=== PATIENT | male | born 1975 | race Caucasian/White ===

== ENCOUNTER → 2016-11-19 | Outpatient (CLI) | payer OTHER ==
[2016-11-19 10:45] LABS: CH 31.5; CHCM 35.6; HCT 39.6 % (39.0-53.0); HDW 3.01; HGB 13.8 gm/dL (13.0-17.5); MCH 30.9 pg (25.0-35.0); MCHC 34.8 g/dL (31.0-37.0); MCV 88.9 fL (80.0-100.0); Mean Platelet Volume 7.9; RBC 4.45 m/uL (4.30-5.90); RDW 12.6 % (11.5-15.5); WBC 3.6 k/uL (3.8-10.6)
[2016-11-19 10:57] LABS: Bilirubin, Delta 0.2 mg/dL (0.0-0.2); Total Bilirubin 0.4 mg/dL (0.2-1.3); Total Protein 7.1 g/dL (6.3-8.2)
[2016-11-19 12:22] LABS: Hemoglobin A1C 5.3 % (4.2-6.1)
== END | disposition home or self-care (01) ==
LOC: LABWHC1 10:17
PROVIDERS: ATTEND Psychiatry & Neurology Psychiatry
DX: T50.905A Adverse effect of unspecified drugs, medicaments and biological substances, initial encounter (principal)
CPT/HCPCS: 36415; 80076; 80164; 82977; 83036; 85027

== ENCOUNTER → 2018-01-24 | Outpatient (CLI) | payer OTHER ==
[2018-01-24 10:20] LABS: Basophils % (A) 0 %; Eosinophils # (A) 0.1 k/uL (0-0.7); Eosinophils % (A) 2 %; HCT 45.3 % (39.0-53.0); Lymphocytes # (A) 2.2 k/uL (1.0-4.8); Lymphocytes % (A) 41 %; MCH 29.9 pg (25.0-35.0); MCHC 33.1 g/dL (31.0-37.0); MCV 90.4 fL (80.0-100.0); Mean Platelet Volume 7.1; Monocytes # (A) 0.4 k/uL (0-1.0); Monocytes % (A) 7 %; Neutrophils # (A) 2.7 k/uL (1.3-7.7); Neutrophils % (A) 49 %; Platelet Count 182 k/uL (150-450); RBC 5.02 m/uL (4.30-5.90); RDW 13.5 % (11.5-15.5); WBC 5.5 k/uL (3.8-10.6)
[2018-01-24 10:47] LABS: ALT 54 U/L (21-72); AST 30 U/L (17-59); Albumin 4.4 g/dL (3.5-5.0); Alkaline Phosphatase 70 U/L (38-126); Anion Gap 12 mmol/L; Bilirubin, Delta 0.3 mg/dL (0.0-0.2); Bilirubin,Unconjugated 0.1 mg/dL (0.0-1.1); Blood Urea Nitrogen 14 mg/dL (9-20); C Reactive Protein <5.0 mg/L (<10.0); Calcium 9.5 mg/dL (8.4-10.2); Carbon Dioxide 28 mmol/L (22-30); Chloride 103 mmol/L (98-107); Cholesterol 288 mg/dL (<200); Creatine Kinase 70 U/L (55-170); Glucose 96 mg/dL (74-99); HDL Cholesterol 49 mg/dL (40-60); Potassium 4.9 mmol/L (3.5-5.1); Sodium 143 mmol/L (137-145); Total Bilirubin 0.4 mg/dL (0.2-1.3); Total Protein 7.1 g/dL (6.3-8.2); Triglycerides 507 mg/dL (<150); Valproic Acid (Depakene) 49.5 ug/mL
[2018-01-24 10:56] LABS: T4, Free (Free Thyroxine) 0.87 ng/dL (0.78-2.19)
[2018-01-24 11:55] LABS: Erythrocyte Sedimentation Rate 2 mm/hr (0-15)
[2018-01-24 19:38] LABS: Hemoglobin A1C 5.4 % (4.0-6.0)
== END | disposition home or self-care (01) ==
LOC: LABWHC1 10:02
PROVIDERS: ATTEND Psychiatry & Neurology Psychiatry
DX: I10 Essential (primary) hypertension (principal); N40.0 Benign prostatic hyperplasia without lower urinary tract symptoms; E78.5 Hyperlipidemia, unspecified; E03.9 Hypothyroidism, unspecified; E55.9 Vitamin D deficiency, unspecified; E66.9 Obesity, unspecified; Z79.899 Other long term (current) drug therapy
CPT/HCPCS: 36415; 80053; 80061; 80164; 82248; 82306; 82550; 83036; 84153; 84439; 84443; 85025; 85652; 86140

== ENCOUNTER → 2018-04-21 | Outpatient (CLI) | payer OTHER ==
[2018-04-21 08:16] LABS: Anion Gap 9 mmol/L; Blood Urea Nitrogen 16 mg/dL (9-20); Calcium 9.5 mg/dL (8.4-10.2); Carbon Dioxide 28 mmol/L (22-30); Chloride 103 mmol/L (98-107); Glucose 119 mg/dL (74-99); Phosphorus 4.4 mg/dL (2.5-4.5); Potassium 4.4 mmol/L (3.5-5.1); Sodium 140 mmol/L (137-145)
[2018-04-21 09:25] LABS: Prostate Specific Antigen 0.29 ng/mL (0.00-4.00)
== END | disposition home or self-care (01) ==
LOC: LABWHC1 07:44
PROVIDERS: ATTEND Internal Medicine
DX: N40.0 Benign prostatic hyperplasia without lower urinary tract symptoms (principal); E78.5 Hyperlipidemia, unspecified; I10 Essential (primary) hypertension; E55.9 Vitamin D deficiency, unspecified; G47.33 Obstructive sleep apnea (adult) (pediatric)
CPT/HCPCS: 36415; 80048; 83735; 84100; 84153

== ENCOUNTER → 2018-12-04 | Outpatient (CLI) | payer OTHER ==
[2018-12-04 18:32] LABS: Anion Gap 6.8 mmol/L (4.00-12.00); Calcium 9.2 mg/dL (8.7-10.3); Carbon Dioxide 27.2 mmol/L (21.6-31.8); Potassium 4.5 mmol/L (3.5-5.5)
== END ==
LOC: LABWHC1 11:42
PROVIDERS: ATTEND Internal Medicine
DX: E87.8 Other disorders of electrolyte and fluid balance, not elsewhere classified (principal); I10 Essential (primary) hypertension; R60.0 Localized edema
CPT/HCPCS: 36415; 80048

== ENCOUNTER 2020-10-27 21:17 | Inpatient (IN) | payer MEDICAID, OTHER ==
[2020-10-27 22:08] LABS: Amphetamine Screen,Urine Not Detected (NotDetected); Barbiturate Screen,Urine Not Detected (NotDetected); Benzodiazepines Screen,Urine Not Detected (NotDetected); Cocaine Screen,Urine Detected (NotDetected); Methadone Screen, Urine Not Detected (NotDetected); Opiate Screen,Urine Not Detected (NotDetected); Oxycodone Screen, Urine Not Detected (NotDetected); Phencyclidine Screen,Urine Not Detected (NotDetected); Tricyclic Antidepressant,Urine Not Detected (NotDetected); Urn Cannabinoid Scrn Not Detected (NotDetected)
--- NOTE | 2020-10-27 23:05 | ED ---
Psych HPI - General Chief Complaint: Psychiatric Symptoms Stated Complaint: Mental Health Time Seen by Provider: 10/27/20 21:23 Source: patient, family Mode of arrival: ambulatory Limitations: no limitations - History of Present Illness Initial Comments: This a 45-year-old male presents emergency Department chief complaint of requesting psychiatric evaluation. Patient's been days had increased sensation anger depression denies any suicidal or homicidal. Patient does admit to alcohol and drug use including cocaine. Patient states he feels unstable. Patient states he is tired of answering to other people and living other people's lives - Related Data Home Medications Medication Instructions Recorded Confirmed Enalapril [Vasotec] 20 mg PO BID 07/07/16 10/27/20 Furosemide [Lasix] 40 mg PO DAILY 07/07/16 10/27/20 Metoprolol Tartrate [Lopressor] 50 mg PO BID 07/07/16 10/27/20 amLODIPine BESYLATE [Norvasc] 5 mg PO DAILY 07/07/16 10/27/20 hydrALAZINE HCL [Apresoline] 50 mg PO DAILY 07/07/16 10/27/20 ARIPiprazole [Abilify] 10 mg PO HS 10/27/20 10/27/20 Citalopram Hydrobromide [CeleXA] 40 mg PO DAILY 10/27/20 10/27/20 traZODone HCL [Desyrel] 50 mg PO HS PRN 10/27/20 10/27/20 Allergies Allergy/AdvReac Type Severity Reaction Status Date / Time No Known Allergies Allergy Verified 10/27/20 23:35 Review of Systems ROS Statement: Those systems with pertinent positive or pertinent negative responses have been documented in the HPI. ROS Other: All systems not noted in ROS Statement are negative. Past Medical History Past Medical History: Hypertension History of Any Multi-Drug Resistant Organisms: None Reported Past Surgical History: Hernia Repair Past Psychological History: Anxiety, Depression Smoking Status: Light tobacco smoker Past Alcohol Use History: Occasional Past Drug Use History: Cocaine, Marijuana General Exam Limitations: no limitations General appearance: alert, in no apparent distress, anxious Head exam: Present: atraumatic, normocephalic, normal inspection Eye exam: Present: normal appearance, PERRL, EOMI. Absent: scleral icterus, conjunctival injection, periorbital swelling ENT exam: Present: normal exam, normal oropharynx, mucous membranes moist Neck exam: Present: normal inspection, full ROM. Absent: tenderness, meningismus, lymphadenopathy Respiratory exam: Present: normal lung sounds bilaterally. Absent: respiratory distress, wheezes, rales, rhonchi, stridor Cardiovascular Exam: Present: regular rate, normal rhythm, normal heart sounds. Absent: systolic murmur, diastolic murmur, rubs, gallop, clicks Psychiatric exam: Present: agitated, anxious Skin exam: Present: warm, dry, intact, normal color. Absent: rash Course Vital Signs 10/27/20 21:20 Temperature 98.5 F Pulse Rate 96 Respiratory 20 Rate Blood Pressure 146/94 O2 Sat by Pulse 96 Oximetry Medical Decision Making - Medical Decision Making Patient reevaluated EPS. Patient will be admitted for psychiatric treatment. - Lab Data Lab Results 10/27/20 10/27/20 Range/Units 21:35 23:34 Urine Opiates Screen Not Detected (NotDetected) Ur Oxycodone Screen Not Detected (NotDetected) Urine Methadone Screen Not Detected (NotDetected) Ur Propoxyphene Screen Not Detected (NotDetected) Ur Barbiturates Screen Not Detected (NotDetected) U Tricyclic Antidepress Not Detected (NotDetected) Ur Phencyclidine Scrn Not Detected (NotDetected) Ur Amphetamines Screen Not Detected (NotDetected) U Methamphetamines Scrn Not Detected (NotDetected) U Benzodiazepines Scrn Not Detected (NotDetected) Urine Cocaine Screen Detected H (NotDetected) U Marijuana (THC) Screen Not Detected (NotDetected) Coronavirus (PCR) Not Detected (Not Detectd) Disposition Clinical Impression: Depression Disposition: TRANSFER TO PSYCH HOSP/UNIT Referrals: Jean-Claude Alva MD [Primary Care Provider] - 1-2 days
[2020-10-28] MEDS ORDERED: amLODIPine 5 MG TAB PO STA (01:46)
[2020-10-28] MEDS ORDERED: MAGNESIUM HYDROXIDE 2,400 MG/10 ML CUP PO PRN (02:27)
[2020-10-28] MEDS ORDERED: LORazepam 1 MG TAB PO PRN (02:27)
[2020-10-28] MEDS ORDERED: MAG HYDROX/AL HYDROX/SIMETH 30 ML CUP PO PRN (02:27)
[2020-10-28] MEDS ORDERED: ACETAMINOPHEN TAB 325 MG TAB PO PRN (02:27)
[2020-10-28] MEDS ORDERED: LORazepam 2 MG/ML INJ IM PRN (02:31)
[2020-10-28] MEDS ORDERED: HALOPERIDOL LACTATE 5 MG/ML 1 ML VIAL IM PRN (02:33)
[2020-10-28] MEDS ORDERED: haloperidoL 5 MG TAB PO PRN (02:33)
[2020-10-28] MEDS ORDERED: risperiDONE 1 MG TAB PO SCH (09:00)
[2020-10-28] MEDS: METOPROLOL TARTRATE 50 MG TAB PO SCH ×2 (09:02→21:11)
[2020-10-28] MEDS: amLODIPine 10 MG TAB PO SCH (09:02)
[2020-10-28] MEDS: lisinopriL 20 MG TAB PO SCH ×2 (09:03→21:11)
[2020-10-28] MEDS: FUROSEMIDE 40 MG TAB PO SCH (09:03)
[2020-10-28] MEDS: NICOTINE 14MG/24HR PATCH TRANSDERM SCH (09:03)
[2020-10-28] MEDS: hydrALAZINE HCL 50 MG TAB PO SCH (09:03)
--- NOTE | 2020-10-28 12:55 | P.CONS ---
History of Present Illness - Reason for Consult Consult date: 10/28/20 (Acute psychosis) - Chief Complaint Mr. Turner presented to the emergency room requesting psychiatric evaluati - History of Present Illness This is a consultation requested by mental health Dr. Bert juan psychiatrist for medical management. Patient presented to the emergency room on 10/27/2020 at 2304 close to midnight. Seen by PA in the ER with the diagnosis acute psychosis and depression and insomnia and admitted to the psychiatric floor. Patient on admission has mild elevation of hypertension however subsequently normalized mistaken his medication as he stated that he wasn't taking his medication. They did the urine analysis found and drug screen found that he has positive for cocaine screen visit, patient also chewing tobacco he is not a smoker and he admitted that he uses cocaine in the note in the ER Patient had history of depression, and emotion instability with remote history of loss of his girlfriend and he lives with his mom in the basement. He is receiving antidepressant medication Abilify, citalopram, trazodone for insomnia. History of hypertension and recently seen in the office prior to this incident and he was not taken his medication and advised and refill of his medication and send to his pharmacy however he still admitted that he did not take his medication. He denied any recent alcohol intake. 4 hypertension he taken enalapril 20 mg twice a day and Lasix 40 mg daily and amlodipine 5 mg at at bedtime. He has no ALLERGY. The past medical history for hypertension. Which is currently on today seen the patient is normalized with the use of his medication Patient seen today evaluated his vital sign indicating that on admission 3521 temperature 98.5 oral F is radial pulses was 96/m regular sinus and his respiratory rate was 20/m, blood pressure 146/94 with the pulse ox 96-98% on room air His vital sign today indicating that temperature 97.4 FL and his blood pressure 138/78 with the no change in his oxygen pulse rate is 99. On examination: Patient is conscious alert oriented 3 ambulatory no acute distress appears to be calm today however he has aggressive behavior at home and brought to the ER by his mother. HEENT: Head was normocephalic and atraumatic, pupil equal reactive, inject I bowel was pink sclera was nonicteric. Oropharynx he has natural teeth, and I advised in the office in the recent visit to stop chewing tobacco No ulceration in the gum uvula midline. Neck was supple no JVD no thyromegaly no lymphadenopathy trachea midline. Chest was clear to auscultation and percussion and no wheezes no rhonchi's. Heart regular sinus rhythm no clear arrhythmia or murmurs. No history of chest pain. Abdomen soft positive bowel sounds no organ enlargement Extremities no edema and positive pulses bilateral and symmetrical No genitourinary complaint. Musculoskeletal he is big muscular man. His home medication trazodone 50 mg at at bedtime when necessary #2 citalopram/Celexa 40 mg daily. #3 Abilify 10 mg at at bedtime. #4 hydralazine 50 mg daily #5 amlodipine 5 mg daily #6 metoprolol tartrate 50 mg twice a day #7 furosemide Lasix 40 mg daily next #8 enalapril Vasotec 20 mg twice a day. Lost office visit we discontinue amlodipine because of his blood pressure was fairly well controlled and significant drop. Assessment: Currently patient hypertension is fairly well controlled on the current medication with the blood pressure 138/78, no farther symptoms, afebrile With the underlying admission to the psych floor, mental health, aggression, anger management. Underlying acute psychosis on admission, depression, questionable bipolar. And psychiatry evaluation is continue pending patient currently on Ativan and he is calm and quiet and pleasant on conversation. Hypertension is controlled. Plan continue current medication. Please call me if you have any further issue medically as he currently stable Past Medical History Past Medical History: Hypertension History of Any Multi-Drug Resistant Organisms: None Reported Past Surgical History: Hernia Repair Past Anesthesia/Blood Transfusion Reactions: No Reported Reaction Past Psychological History: Anxiety, Depression Smoking Status: Light tobacco smoker Past Alcohol Use History: Occasional Past Drug Use History: Cocaine, Marijuana Medications and Allergies Home Medications Medication Instructions Recorded Confirmed Type Enalapril [Vasotec] 20 mg PO BID 07/07/16 10/27/20 History Furosemide [Lasix] 40 mg PO DAILY 07/07/16 10/27/20 History Metoprolol Tartrate [Lopressor] 50 mg PO BID 07/07/16 10/27/20 History amLODIPine BESYLATE [Norvasc] 5 mg PO DAILY 07/07/16 10/27/20 History hydrALAZINE HCL [Apresoline] 50 mg PO DAILY 07/07/16 10/27/20 History ARIPiprazole [Abilify] 10 mg PO HS 10/27/20 10/27/20 History Citalopram Hydrobromide [CeleXA] 40 mg PO DAILY 10/27/20 10/27/20 History traZODone HCL [Desyrel] 50 mg PO HS PRN 10/27/20 10/27/20 History Allergies Allergy/AdvReac Type Severity Reaction Status Date / Time No Known Allergies Allergy Verified 10/27/20 23:35 Physical Exam Vitals: Vital Signs Temp Pulse Pulse Resp BP BP Pulse Ox 10/28/20 09:30 97.4 F L 10/28/20 09:04 99 138/78 10/28/20 04:33 97.0 F L 78 18 143/94 10/28/20 02:40 90 16 159/92 98 10/27/20 21:20 98.5 F 96 20 146/94 96 Intake and Output 10/27/20 10/28/20 10/28/20 22:59 06:59 14:59 Other: Weight 120.202 kg 120.202 kg Results Labs: Abnormal Lab Results - Last 24 Hours (Table) 10/27/20 Range/Units 21:35 Urine Cocaine Screen Detected H (NotDetected)
--- NOTE | 2020-10-28 13:35 | P.HP ---
Psychiatric H&P - . H&P Date: 10/28/20 History & Physical: IDENTIFYING DATA: He is a 45-year-old single male admitted to the psychiatric unit involuntarily. His mother completed a Petition that read "fits of anger, yelling, blaming everyone around for all of his issues, violent, thre atening, not taking his occasions as prescribed." HISTORY OF PRESENT ILLNESS: I reviewed the medical record and interviewed the patient. He was unable to provide a coherent current psychiatric history. 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 He did not understand that his mother had completed a Petition for hospitalization. She denied the allegations in the petition. Specifically, he denied that he has had problems with his anger, has been violent or had been threatening. He certainly denied that he has not been compliant with his prescribed psychotropic medications. He denied feeling depressed or having thoughts of or suicide. He denied homicidal ideation. He denied persistent anxiety that interferes with his ability to function. He was evasive about his alcohol and drug use but when I confronted him about the results of urine drug screen he admitted that he had used some cocaine. He talked disjointedly about a friend offered him cocaine and using it "only once". He alleged that he drinks socially and his breath alcohol level on presentation to the ED was 0.061. He denied experiencing auditory, visual or olfactory hallucinations, ideas reference, thought insertion, thought broadcasting or thought control. PAST PSYCHIATRIC HISTORY: He had 2 prior admissions to this unit in 2009 and attended 2011 when he was diagnosed with a depressive disorder. His enrolled with [facility]. Dr. Ferreiraed his his psychiatrist and he is treated with a combination of Celexa 40 mg daily, trazodone 50 mg at bedtime and begin Abilify 10 mg at bedtime for the diagnosis of major depressive disorder and alcohol use disorder. PAST MEDICAL HISTORY: Hypertension ALLERGIES: NO KNOWN DRUG ALLERGIES. SUBSTANCE USE HISTORY: The record he has history of alcohol and cocaine use disorder. His UDS was positive for cocaine. He denied that he participated in a substance abuse treatment program. FAMILY PSYCHIATRIC/SUBSTANCE USE HISTORY: His family history of depression. LEGAL HISTORY: He is not on probation, parole or has pending charges. He has multiple past charges including aggravated stalking, stalking, attempted home invasion, 2 DUIs and possession of marijuana. 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 SOCIAL HISTORY: His parents are . His father lives in [place]. His younger brother who was [facility] and older brother lives in [place] [facility]. He is single and has no children. He is unemployed and living with his mother. MENTAL STATUS EXAM: He presented as a tall moderately obese somewhat disheveled appearing 45-year-old male. He made eye contact and appeared to attend to the interview. He had no distinguishing features or prominent physical modalities. He had a bright facial expression. He is alert and oriented to person and place. He had no abnormality of psychomotor activity. His gait was slow but steady. His speech was spontaneous with increased rate but normal volume. His speech was slightly dysarthric. His affect was elevated and at times inappropriate. He denied suicidal ideation, wishes or homicidal ideation. He denied feeling hopeless, helpless or worthless. He did not express clear ideas reference or paranoid ideation or delusions. His thinking was concrete and associations were not organized, coherent or goal directed. He denied hallucinations and did not appear to be responding to internal stimuli. STRENGTHS: Physical health, stable housing, engagement with mental health services. WEAKNESSES: Poor with psychotropic medications, chronic mental illness, recurrent alcohol and cocaine use IMPRESSION: Is a 45-year-old single male who presented to unit involuntarily with history of agitation, irritability and aggressive behavior. He has a history of a mood disorder diagnoses of major depressive disorder as well as a history of cocaine and alcohol use problems. His UDS was positive for cocaine. He has signs and symptoms of hypomania including elevated blood, ideas and pressured speech. He should be treated inpatient basis with a combination of psychopharmacology and multimodal therapy. PRINCIPLE DIAGNOSIS: Bipolar disorder most recent episode hypomanic, rule out mo od disorder due to cocaine use disorder, cocaine use disorder, rule out alcohol use disorder, poor compliance with psychiatric treatment RECOMMENDATION: Admit to the psychiatric unit. Since precautions. Consult medicine for initial physical exam and medical history. food prep worker completed initial psychosocial assessment coordinate discharge and aftercare. Continue Abilify 10 mg daily and titrated clinical response and tolerance; consider transition to Abilify long-acting prior to discharge. Continue Norvasc 10 mg daily, Lasix 40 mg daily, Apresoline 50 mg daily, Zestril 20 mg twice a day, Lopressor 50 mg twice a day and trazodone 50 mg at bedtime. Encourage participation in therapeutic groups and activities. Evaluate clinical status response to treatment daily basis. Allergies Allergy/AdvReac Type Severity Reaction Status Date / Time No Known Allergies Allergy Verified 10/27/20 23:35 Vital Signs Temp 97.4 F L 10/28/20 09:30 Pulse 99 10/28/20 09:04 Resp 18 10/28/20 04:33 BP 138/78 10/28/20 09:04 Pulse Ox 98 10/28/20 02:40 Intake & Output 10/27/20 10/28/20 10/28/20 18:59 06:59 18:59 Weight 120.202 kg Laboratory Last Values Urine Opiates Screen Not Detected (NotDetected) 10/27/20 21:35 Ur Oxycodone Screen Not Detected (NotDetected) 10/27/20 21:35 Urine Methadone Screen Not Detected (NotDetected) 10/27/20 21:35 Ur Propoxyphene Screen Not Detected (NotDetected) 10/27/20 21:35 Ur Barbiturates Screen Not Detected (NotDetected) 10/27/20 21:35 U Tricyclic Antidepress Not Detected (NotDetected) 10/27/20 21:35 Ur Phencyclidine Scrn Not Detected (NotDetected) 10/27/20 21:35 Ur Amphetamines Screen Not Detected (NotDetected) 10/27/20 21:35 U Methamphetamines Scrn Not Detected (NotDetected) 10/27/20 21:35 U Benzodiazepines Scrn Not Detected (NotDetected) 10/27/20 21:35 Urine Cocaine Screen Detected (NotDetected) H 10/27/20 21:35 U Marijuana (THC) Screen Not Detected (NotDetected) 10/27/20 21:35 Coronavirus (PCR) Not Detected (Not Detectd) 10/27/20 23:34 10/28/20 13:16
[2020-10-28] MEDS: ARIPiprazole 10 MG TAB PO SCH (21:11)
[2020-10-29 06:45] LABS: Basophils % (A) 0 %; Eosinophils # (A) 0.1 k/uL (0-0.7); Eosinophils % (A) 2 %; HCT 44.1 % (39.0-53.0); HGB 14.7 gm/dL (13.0-17.5); Lymphocytes # (A) 1.9 k/uL (1.0-4.8); Lymphocytes % (A) 34 %; MCH 30.9 pg (25.0-35.0); MCHC 33.3 g/dL (31.0-37.0); MCV 92.8 fL (80.0-100.0); Mean Platelet Volume 7.3; Monocytes # (A) 0.4 k/uL (0-1.0); Monocytes % (A) 7 %; Neutrophils # (A) 3.2 k/uL (1.3-7.7); Neutrophils % (A) 55 %; Platelet Count 198 k/uL (150-450); RBC 4.75 m/uL (4.30-5.90); RDW 12.7 % (11.5-15.5); WBC 5.7 k/uL (3.8-10.6)
[2020-10-29 07:04] LABS: ALT 31 U/L (4-49); AST 28 U/L (17-59); African American GFR (CKD) >90 (>60 ml/min/1.73 sqM); Albumin 3.9 g/dL (3.5-5.0); Alkaline Phosphatase 80 U/L (38-126); Anion Gap 5 mmol/L; Blood Urea Nitrogen 18 mg/dL (9-20); Calcium 9.1 mg/dL (8.4-10.2); Carbon Dioxide 28 mmol/L (22-30); Chloride 105 mmol/L (98-107); Cholesterol 178 mg/dL (<200); Glucose 115 mg/dL (74-99); HDL Cholesterol 48 mg/dL (40-60); LDL Cholesterol,Calculated 79 mg/dL (0-99); Non-African American GFR(CKD) 87 (>60 ml/min/1.73 sqM); Potassium 4.5 mmol/L (3.5-5.1); Sodium 138 mmol/L (137-145); Total Bilirubin 0.3 mg/dL (0.2-1.3); Total Protein 6.5 g/dL (6.3-8.2); Triglycerides 257 mg/dL (<150)
[2020-10-29] MEDS: amLODIPine 10 MG TAB PO SCH (08:03)
[2020-10-29] MEDS: lisinopriL 20 MG TAB PO SCH ×2 (08:03→21:42)
[2020-10-29] MEDS: METOPROLOL TARTRATE 50 MG TAB PO SCH ×2 (08:03→21:42)
[2020-10-29] MEDS: hydrALAZINE HCL 50 MG TAB PO SCH (08:03)
[2020-10-29] MEDS: FUROSEMIDE 40 MG TAB PO SCH (08:03)
[2020-10-29] MEDS: NICOTINE 14MG/24HR PATCH TRANSDERM SCH (08:03)
[2020-10-29 14:19] LABS: Hemoglobin A1C 5.7 % (4.0-6.0)
--- NOTE | 2020-10-29 15:57 | P.PN ---
Progress Note - Text Progress Note Date: 10/29/20 Clinical Problems: Bipolar disorder most recent episode hypomanic, rule out mood disorder due to cocaine use disorder, cocaine use disorder, rule out alcohol use disorder, poor compliance with psychiatric treatment Interim history: I reviewed the medical record and interviewed the patient. His only concern was discharge and he perseverated about appointments including an upcoming probate hearing. He had difficulty organizing his thoughts and perseverated about vague topics. At times he loses his train of thought and stares blankly. He has been compliant with prescribed medications. He is posed no management problem and had no episodes of behavioral dyscontrol. He is not attending therapeutic groups and activities. He slept 4 hours last night. Mental status exam: He presented as a tall casually groomed moderately obese male who was pleasant on approach. He made eye contact and appeared to attend to interview. He had a puzzled facial expression. He was intermittently restless. His speech was spontaneous slightly pressured vague and unorganized. His affect was elevated. He denied suicidal ideation or wishes. He did not express ideas reference, paranoid ideation or delusions. His thinking was concrete and associations were coherent, logical goal directed. He did not demonstrate neologisms or blocking. He denied hallucinations and did not appear to be responding to internal stimuli. Assessment: He is fairly mentally ill and moderately improve from admission. Plan: [facility] inpatient treatment. Continue safety precautions. Continue Abilify 10 mg daily and titrated clinical response and tolerance; consider transition to Abilify long-acting prior to discharge. Encourage participation in therapeutic groups and activities. Evaluate clinical status response to treatment daily basis.
[2020-10-29] MEDS: ARIPiprazole 10 MG TAB PO SCH (21:42)
[2020-10-29] MEDS: traZODone HCL 50 MG TAB PO PRN (21:43)
[2020-10-30] MEDS: amLODIPine 10 MG TAB PO SCH (09:54)
[2020-10-30] MEDS: lisinopriL 20 MG TAB PO SCH ×3 (09:55→20:55)
[2020-10-30] MEDS: FUROSEMIDE 40 MG TAB PO SCH (09:57)
[2020-10-30] MEDS: NICOTINE 14MG/24HR PATCH TRANSDERM SCH (09:59)
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
[2020-10-30] MEDS: hydrALAZINE HCL 50 MG TAB PO SCH (11:55)
[2020-10-30] MEDS: METOPROLOL TARTRATE 50 MG TAB PO SCH ×2 (11:56→20:55)
[2020-10-30 17:26] LABS: Appearance,Urine Clear (Clear); Bilirubin,Urine Negative (Negative); Blood,Urine Negative (Negative); Color,Urine Light Yellow; Glucose,Urine (UA) Negative (Negative); Ketones,Urine Negative (Negative); Leukocyte Esterase,Urine Negative (Negative); Nitrite,Urine Negative (Negative); PH, Urine 6.5 (5.0-8.0); Protein,Urine Negative (Negative); Urobilinogen,Urine <2.0 mg/dL (<2.0)
[2020-10-30 20:57] VITALS: RESP 16
[2020-10-30] MEDS ORDERED: ARIPiprazole 15 MG TAB PO SCH (21:00)
[2020-10-31] MEDS: amLODIPine 10 MG TAB PO SCH (09:17)
[2020-10-31] MEDS: NICOTINE 14MG/24HR PATCH TRANSDERM SCH (09:17)
[2020-10-31] MEDS: FUROSEMIDE 40 MG TAB PO SCH (09:17)
[2020-10-31] MEDS: METOPROLOL TARTRATE 50 MG TAB PO SCH ×2 (09:17→21:00)
[2020-10-31] MEDS: lisinopriL 20 MG TAB PO SCH ×2 (09:17→21:00)
[2020-10-31] MEDS: hydrALAZINE HCL 50 MG TAB PO SCH (09:17)
--- NOTE | 2020-10-31 11:27 | P.PN ---
Progress Note - Text Progress Note Date: 10/31/20 Interval History: Patient was seen wandering the hallways and was directable and agreeable to speak with sign writer letterer or painter in the office. The patient reports that he is feeling better today. The patient continues to request for discharge. He is currently not reporting any suicidal or homicidal ideation, intention, and/or plan. He is not reporting any auditory or visualizations. He is denying any paranoia or other delusions. Despite his fixation on his ex-girlfriend yesterday, the patient is not reporting any fixation at this time. Review of the patient's notes from [facility] revealed that the patient was much more linear, logical, and fluent in his speech when last evaluated by Dr. Rico. Although improved today, the patient continues to be somewhat slurred in speech which he acknowledges. The patient has been adherent with his medications and reports mild sedation as a side effect. Mental Status Exam: General Appearance: Patient appears to be stated age is alert, directable, and cooperative. Obese body habitus. Short cut hair. Large and stoll build. Behavior: Patient is calmly seated without any agitated behavior. Psychomotor activity appears elevated. Eye contact is fair. Speech: Patient's speech is slurred and rapid but improving. Hyperverbal. Much more linear. Mood/Affect: Mood is "feeling okay." Affect is bizarre and slightly expansive. Suicidality/Homicidality: Patient denies having any suicidal or homicidal ideation intent or plan. Perceptions: Patient denies any visual hallucinations and denies any auditory hallucinations Though content/process: No delusional thought content is endorsed. Thought process appears to be much more linear and logical in short conversation today. Memory and concentration: AOX3, grossly intact for the purposes of this session Judgment and insight: Improving mildly Assessment: Bipolar disorder, type II, hypomanic episode Cocaine use disorder Alcohol use disorder Plan: -Patient continues to meet criteria for inpatient psychiatric admission for symptom stabilization and safety. Patient has signed adult voluntary form. -Medications: Increase Abilify to 20 mg by mouth at bedtime for mood stabilization Continue Citalopram 40 mg by mouth daily at this time. Continue trazodone 50 mg by mouth at bedtime when necessary for insomnia -When necessary Ativan and Haldol for agitation/aggression. -NRT - nicotine patch. -SW on board for discharge planning. Encouraged the patient to participate in milieu.
[2020-10-31] MEDS: traZODone HCL 50 MG TAB PO PRN (22:55)
[2020-11-01] MEDS: METOPROLOL TARTRATE 50 MG TAB PO SCH ×2 (09:10→22:03)
[2020-11-01] MEDS: amLODIPine 10 MG TAB PO SCH (09:10)
[2020-11-01] MEDS: FUROSEMIDE 40 MG TAB PO SCH (09:10)
[2020-11-01] MEDS: hydrALAZINE HCL 50 MG TAB PO SCH (09:11)
[2020-11-01] MEDS: lisinopriL 20 MG TAB PO SCH ×2 (09:11→22:03)
[2020-11-01] MEDS: NICOTINE 14MG/24HR PATCH TRANSDERM SCH (09:15)
--- NOTE | 2020-11-01 09:56 | P.PN ---
Progress Note - Text Progress Note Date: 11/01/20 Interval History: Patient was seen resting in bed and was directable and agreeable to speak with display card writer in the office. The patient reports that he is feeling better today. The patient is not reporting any suicidal or homicidal ideation, intention, and/or plan. He is not reporting any auditory or visual hallucinations. He is denying any paranoia or delusions. Patient states that he feels like the medication has significantly helped. He reports that his thoughts appeared to be clear and that he appears to be able to focus better. Furthermore, he states that he was speaking with his mother over the phone who commented that he appears to be brighter again. The patient is not reporting any racing thoughts, mood swings, or anger. He states that he would like to attend groups today. The patient states that he believes that his anger and mood swings were triggered by the cocaine use and his relationship with a particular female in the outpatient setting. Mental Status Exam: General Appearance: Patient appears to be stated age is alert, directable, and cooperative. Obese body habitus. Short cut hair. Large and stoll build. Behavior: Patient is calmly seated without any agitated behavior. Psychomotor activity appears elevated. Eye contact is fair. Speech: Patient's speech is rapid and hyperverbal but much more linear and coherent. Mood/Affect: Mood is "feeling better." Affect is euthymic with appropriate range. Suicidality/Homicidality: Patient denies having any suicidal or homicidal ideation intent or plan. Perceptions: Patient denies any visual hallucinations and denies any auditory hallucinations Though content/process: No delusional thought content is endorsed. Thought process appears to be linear and logical. Memory and concentration: AOX3, grossly intact for the purposes of this session Judgment and insight: Improving mildly Assessment: Bipolar disorder, type II, hypomanic episode Cocaine use disorder Alcohol use disorder Plan: -Patient continues to meet criteria for inpatient psychiatric admission for symptom stabilization and safety. Patient has signed adult voluntary form. -Medications: Continue Abilify 20 mg by mouth at bedtime for mood stabilization Continue Citalopram 40 mg by mouth daily at this time. Continue trazodone 50 mg by mouth at bedtime when necessary for insomnia -When necessary Ativan and Haldol for agitation/aggression. -NRT - nicotine patch. -SW on board for discharge planning. Encouraged the patient to participate in milieu.
[2020-11-01 18:18] VITALS: TEMP 97.7
[2020-11-02] MEDS: traZODone HCL 50 MG TAB PO PRN (00:07)
[2020-11-02] MEDS: FUROSEMIDE 40 MG TAB PO SCH (08:36)
[2020-11-02] MEDS: METOPROLOL TARTRATE 50 MG TAB PO SCH ×2 (08:36→09:24)
[2020-11-02] MEDS: hydrALAZINE HCL 50 MG TAB PO SCH (08:36)
[2020-11-02] MEDS: lisinopriL 20 MG TAB PO SCH ×2 (08:37→09:24)
[2020-11-02] MEDS: NICOTINE 14MG/24HR PATCH TRANSDERM SCH (09:20)
[2020-11-02] MEDS: amLODIPine 10 MG TAB PO SCH (09:22)
[2020-11-02 09:34] VITALS: BP 115/58; PULSE 70
--- NOTE | 2020-11-02 12:46 | P.DS ---
Providers Date of admission: 10/28/20 02:25 Expected date of discharge: 11/02/20 Attending physician: Bert Da Silva MD Consults: 10/28/20 02:27 Consult Physician Routine Consulting Provider: Jean-Claude Alva Consult Reason/Comments: h and p Do you want consulting provider notified?: Yes Primary care physician: Jean-Claude Alva - Discharge Diagnosis(es) (1) Bipolar 2 disorder Current Visit: Yes Status: Acute Priority: High (2) Cocaine use disorder Current Visit: Yes Status: Acute Priority: Medium (3) Alcohol abuse Current Visit: Yes Status: Chronic Priority: Medium Hospital Course: Admission HPI: Initial psychiatric evaluation was completed by Dr. Ferguson on 10/28/2020 who wrote: "He is a 45-year-old single male admitted to the psychiatric unit involuntarily. His mother completed a Petition that read "fits of anger, yelling, blaming everyone around for all of his issues, violent, threatening, not taking his occasions as prescribed." I reviewed the medical record and interviewed the patient. He was unable to provide a coherent current psychiatric history. 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 He did not understand that his mother had completed a Petition for hospitalization. She denied the allegations in the petition. Specifically, he denied that he has had problems with his anger, has been violent or had been threatening. He certainly denied that he has not been compliant with his prescribed psychotropic medications. He denied feeling depressed or having thoughts of or suicide. He denied homicidal ideation. He denied persistent anxiety that interferes with his ability to function. He was evasive about his alcohol and drug use but when I confronted him about the results of urine drug screen he admitted that he had used some cocaine. He talked disjointedly about a friend offered him cocaine and using it "only once". He alleged that he drinks socially and his breath alcohol level on presentation to the ED was 0.061. He denied experiencing auditory, visual or olfactory hallucinations, ideas reference, thought insertion, thought broadcasting or thought control." Hospital course: Upon admission to the unit patient was initially noted to be slightly dysarthric and difficult to understand. Patient was however directable and agreeable to commence treatment. Patient got along well with other patients on the unit and followed unit protocol. The patient was continued on his home regimen of citalopram, trazodone, and Abilify. The patient's Abilify was gradually titrated pending the patient's response to treatment. The patient was noted to be quite disorganized and hyperverbal and difficult to follow. He was very circumstantial with flight of ideas. As Abilify was gradually increased the patient became more understandable and much more coherent in speech. Furthermore, the patient's citalopram was held due to concerns of manic switch on the medication. Over the course of hospitalization, the patient gradually improved with regards to his organization, mood, sleep, and anxiety. The patient became more future oriented with improved insight and judgment. On the day of discharge, the patient reported no suicidal or homicidal ideation, intention, and/or plan. He reported no auditory or visual hallucinations. He denied any paranoia or other delusions. The patient does have a significant history of substance abuse however was counseled on abstaining from all substances including alcohol and marijuana. The patient was offered, however, declined inpatient substance-abuse rehab. The patient was counseled on his medications and need for regular compliance and was encouraged to follow-up with his outpatient appointments for mental health and for primary care. Prior to discharge, family meeting will be arranged by transition social worker to answer any questions and ensure safety. The patient denied any access to firearms or weapons. He vehemently denied any desire to follow or hurt anyone else. He has been adherent with his medications and reported no significant side effects. Mental status exam: General Appearance: Patient appears to be stated age is alert, pleasant, and cooperative. Patient is in no acute distress and has fair hygiene and grooming. Obese body habitus. Short cut hair. Large and stoll build. Behavior: Patient is calmly seated without any agitated behavior. Speech: Patient's speech is fluent and nonpressured. Slightly dysarthric but otherwise normal spontaneity, tone, and volume. Mood/Affect: Patient reports their mood is "much better", affect is congruent and euthymic to bright. Suicidality/Homicidality: Patient denies having any suicidal or homicidal ideation intent or plan. Perceptions: Patient denies any auditory or visual hallucinations. Though content/process: There is no evidence of any delusional thought content and thought process is linear and goal-directed. Patient is future oriented. Memory and concentration: AOX3, grossly intact for the purposes of this session. Can spell "WORLD" backwards correctly. Judgment and insight: Improved with guarded prognosis Impression: Bipolar disorder, type II, hypomanic episode - suspect substance induced Cocaine use disorder Alcohol use disorder Plan: -Continue with discharge today as patient has improved and stabilized psychiatrically and is not currently an imminent threat to himself and/or others. Patient will remain at chronically elevated risk for harm to self and/or others due to his impulsivity and polysubstance abuse. -Continue medications: Abilify 20 mg daily at bedtime for mood stabilization Trazodone 50 mg by mouth at bedtime when necessary for insomnia Citalopram 20 mg by mouth daily for depression/anxiety -Patient was counseled on the need for medication compliance and appropriate follow-up at mental health and also primary care for medical issues. Patient verbalized understanding and agreed. -Social work to arrange for and conduct family meeting to ensure safety upon discharge and answer any questions/concerns. Social work also to arrange for patients follow up appointments with [facility] for psychiatric care along with follow up with primary care provider. -Patient counseled on abstaining from recreational drugs and marijuana and alcohol. Was informed/educated on the adverse effects on their physical and mental health. Patient verbally agreed and understood. Patient was offered substance abuse treatment however declined at this time. -Patient was instructed to return to the hospital or seek immediate medical care if their psychiatric or medical symptoms do worsen or reoccur. -Psychoeducation and supportive therapy provided to patient. Risks and benefits of pharmacological treatment versus the risks and benefits of nontreatment weight and discussed. Informed consent discussion held. Common side effects of psychotropics discussed such as, but not limited to headache, GI disturbance, sexual dysfunction, movement disorders, sedation, and orthostatic hypotension. Life threatening and blackbox warnings of prescribed medications also discussed. Potential risks of operating a vehicle or heavy machinery discussed with patient at length. Advised on importance of compliance and a reliable and responsible manner. Patient advised to review FDA consumer labeling of all medications prior to taking. Patient verbalized understanding of potential risks, and agrees with current treatment plan. Patient advised to medically contact physician/emergency personnel if any acute changes in condition occur. Vital Signs Temp 97.7 F 11/01/20 18:17 Pulse 70 11/02/20 09:33 Resp 16 11/02/20 09:33 BP 115/58 11/02/20 09:33 Pulse Ox 98 10/28/20 02:40 Laboratory Results WBC 5.7 k/uL (3.8-10.6) 10/29/20 06:24 RBC 4.75 m/uL (4.30-5.90) 10/29/20 06:24 Hgb 14.7 gm/dL (13.0-17.5) 10/29/20 06:24 Hct 44.1 % (39.0-53.0) 10/29/20 06:24 MCV 92.8 fL (80.0-100.0) 10/29/20 06:24 MCH 30.9 pg (25.0-35.0) 10/29/20 06:24 MCHC 33.3 g/dL (31.0-37.0) 10/29/20 06:24 RDW 12.7 % (11.5-15.5) 10/29/20 06:24 Plt Count 198 k/uL (150-450) 10/29/20 06:24 MPV 7.3 10/29/20 06:24 Neutrophils % 55 % 10/29/20 06:24 Lymphocytes % 34 % 10/29/20 06:24 Monocytes % 7 % 10/29/20 06:24 Eosinophils % 2 % 10/29/20 06:24 Basophils % 0 % 10/29/20 06:24 Neutrophils # 3.2 k/uL (1.3-7.7) 10/29/20 06:24 Lymphocytes # 1.9 k/uL (1.0-4.8) 10/29/20 06:24 Monocytes # 0.4 k/uL (0-1.0) 10/29/20 06:24 Eosinophils # 0.1 k/uL (0-0.7) 10/29/20 06:24 Basophils # 0.0 k/uL (0-0.2) 10/29/20 06:24 Sodium 138 mmol/L (137-145) 10/29/20 06:24 Potassium 4.5 mmol/L (3.5-5.1) 10/29/20 06:24 Chloride 105 mmol/L (98-107) 10/29/20 06:24 Carbon Dioxide 28 mmol/L (22-30) 10/29/20 06:24 Anion Gap 5 mmol/L 10/29/20 06:24 BUN 18 mg/dL (9-20) 10/29/20 06:24 Creatinine 1.05 mg/dL (0.66-1.25) 10/29/20 06:24 Est GFR (CKD-EPI)AfAm >90 (>60 ml/min/1.73 sqM) 10/29/20 06:24 Est GFR (CKD-EPI)NonAf 87 (>60 ml/min/1.73 sqM) 10/29/20 06:24 Glucose 115 mg/dL (74-99) H 10/29/20 06:[address] Glu mg/dL 117 10/29/20 06:24 Hemoglobin A1c 5.7 % (4.0-6.0) 10/29/20 06:24 Calcium 9.1 mg/dL (8.4-10.2) 10/29/20 06:24 Total Bilirubin 0.3 mg/dL (0.2-1.3) 10/29/20 06:24 AST 28 U/L (17-59) 10/29/20 06:24 ALT 31 U/L (4-49) 10/29/20 06:24 Alkaline Phosphatase 80 U/L (38-126) 10/29/20 06:24 Total Protein 6.5 g/dL (6.3-8.2) 10/29/20 06:24 Albumin 3.9 g/dL (3.5-5.0) 10/29/20 06:24 Triglycerides 257 mg/dL (<150) H 10/29/20 06:24 Cholesterol 178 mg/dL (<200) 10/29/20 06:24 LDL Cholesterol, Calc 79 mg/dL (0-99) 10/29/20 06:24 HDL Cholesterol 48 mg/dL (40-60) 10/29/20 06:24 TSH 2.430 mIU/L (0.465-4.680) 10/29/20 06:24 Urine Color Light Yellow 10/30/20 17:14 Urine Appearance Clear (Clear) 10/30/20 17:14 Urine pH 6.5 (5.0-8.0) 10/30/20 17:14 Ur Specific [place] 1.020 (1.001-1.035) 10/30/20 17:14 Urine Protein Negative (Negative) 10/30/20 17:14 Urine Glucose (UA) Negative (Negative) 10/30/20 17:14 Urine Ketones Negative (Negative) 10/30/20 17:14 Urine Blood Negative (Negative) 10/30/20 17:14 Urine Nitrite Negative (Negative) 10/30/20 17:14 Urine Bilirubin Negative (Negative) 10/30/20 17:14 Urine Urobilinogen <2.0 mg/dL (<2.0) 10/30/20 17:14 Ur Leukocyte Esterase Negative (Negative) 10/30/20 17:14 Urine Opiates Screen Not Detected (NotDetected) 10/27/20 21:35 Ur Oxycodone Screen Not Detected (NotDetected) 10/27/20 21:35 Urine Methadone Screen Not Detected (NotDetected) 10/27/20 21:35 Ur Propoxyphene Screen Not Detected (NotDetected) 10/27/20 21:35 Ur Barbiturates Screen Not Detected (NotDetected) 10/27/20 21:35 U Tricyclic Antidepress Not Detected (NotDetected) 10/27/20 21:35 Ur Phencyclidine Scrn Not Detected (NotDetected) 10/27/20 21:35 Ur Amphetamines Screen Not Detected (NotDetected) 10/27/20 21:35 U Methamphetamines Scrn Not Detected (NotDetected) 10/27/20 21:35 U Benzodiazepines Scrn Not Detected (NotDetected) 10/27/20 21:35 Urine Cocaine Screen Detected (NotDetected) H 10/27/20 21:35 U Marijuana (THC) Screen Not Detected (NotDetected) 10/27/20 21:35 Coronavirus (PCR) Not Detected (Not Detectd) 10/27/20 23:34 Allergies Allergy/AdvReac Type Severity Reaction Status Date / Time No Known Allergies Allergy Verified 10/27/20 23:35 Patient Condition at Discharge: Stable Plan - Discharge Summary Discharge Rx Participant: No New Discharge Prescriptions: New ARIPiprazole [Abilify] 20 mg PO HS 30 Days tab hydrALAZINE HCL [Apresoline] 50 mg PO DAILY 30 Days tab traZODone HCL [Desyrel] 50 mg PO HS PRN 30 Days tab PRN Reason: sleep Nicotine 14Mg/24Hr Patch [Habitrol] 1 patch TRANSDERM DAILY 30 Days patch Furosemide [Lasix] 40 mg PO DAILY 30 Days tab Metoprolol Tartrate [Lopressor] 50 mg PO BID 30 Days tab amLODIPine [Norvasc] 10 mg PO DAILY 30 Days tab lisinopriL [Zestril] 20 mg PO BID 30 Days tab Citalopram Hydrobromide [Citalopram HBr] 20 mg PO DAILY 30 Days #30 tablet Discontinued Metoprolol Tartrate [Lopressor] 50 mg PO BID amLODIPine BESYLATE [Norvasc] 5 mg PO DAILY Furosemide [Lasix] 40 mg PO DAILY Enalapril [Vasotec] 20 mg PO BID hydrALAZINE HCL [Apresoline] 50 mg PO DAILY traZODone HCL [Desyrel] 50 mg PO HS PRN PRN Reason: sleep Citalopram Hydrobromide [CeleXA] 40 mg PO DAILY ARIPiprazole [Abilify] 10 mg PO HS Discharge Medication List ARIPiprazole [Abilify] 20 mg PO HS 30 Days tab 11/02/20 [Rx] Citalopram Hydrobromide [Citalopram HBr] 20 mg PO DAILY 30 Days #30 tablet 11/02/20 [Rx] Furosemide [Lasix] 40 mg PO DAILY 30 Days tab 11/02/20 [Rx] Metoprolol Tartrate [Lopressor] 50 mg PO BID 30 Days tab 11/02/20 [Rx] Nicotine 14Mg/24Hr Patch [Habitrol] 1 patch TRANSDERM DAILY 30 Days patch 11/02/20 [Rx] amLODIPine [Norvasc] 10 mg PO DAILY 30 Days tab 11/02/20 [Rx] hydrALAZINE HCL [Apresoline] 50 mg PO DAILY 30 Days tab 11/02/20 [Rx] lisinopriL [Zestril] 20 mg PO BID 30 Days tab 11/02/20 [Rx] traZODone HCL [Desyrel] 50 mg PO HS PRN 30 Days tab 11/02/20 [Rx] Follow up Appointment(s)/Referral(s): [facility] [Outside] - 11/03/20 9:00 am (11-03-20 @ 9:00 with Jermain Avelar by phone 11-08-20 @ 8:[address] Rico at [facility] office) Jean-Claude Alva MD [Primary Care Provider] - 1-2 days Patient Instructions/Handouts: Depression (DC) Activity/Diet/Wound Care/Special Instructions: Activity and diet as tolerated. Avoid the use of street drugs and alcohol. Take all medications as prescribed. When you are in need of refills on your medications please contact your medical provider and/or outpatient psychiatrist to have this done. Please go to scheduled outpatient appointment for aftercare treatment. If symptoms return or become worse, call the crisis line at and/or go to the nearest emergency room for evaluation. Discharge Disposition: HOME SELF-CARE
== END 2020-11-02 11:50 | disposition home or self-care (01) | DRG 885 ==
LOC: EC 21:17 → 3MHU 10-28 02:25
PROVIDERS: ADMIT Psychiatry & Neurology Psychiatry; ATTEND Psychiatry & Neurology Psychiatry
DX: F31.81 Bipolar II disorder (principal); F23 Brief psychotic disorder; R45.850 Homicidal ideations; F10.10 Alcohol abuse, uncomplicated; F14.10 Cocaine abuse, uncomplicated; Z20.822 Contact with and (suspected) exposure to COVID-19; I10 Essential (primary) hypertension; R47.1 Dysarthria and anarthria; R45.87 Impulsiveness; E66.9 Obesity, unspecified; Z68.35 Body mass index [BMI] 35.0-35.9, adult; G47.00 Insomnia, unspecified; F17.220 Nicotine dependence, chewing tobacco, uncomplicated; Z71.6 Tobacco abuse counseling; Z79.899 Other long term (current) drug therapy; Z56.0 Unemployment, unspecified; Z87.19 Personal history of other diseases of the digestive system; Z98.890 Other specified postprocedural states; Z81.8 Family history of other mental and behavioral disorders; F41.9 Anxiety disorder, unspecified
CPT/HCPCS: 80053; 80061; 80306; 81003; 82075; 83036; 84443; 85025; 87635; 99284

== ENCOUNTER → 2021-07-20 | Outpatient (CLI) | payer OTHER ==
--- NOTE | 2021-07-20 16:18 | XR ---
EXAMINATION TYPE: XR chest 2V DATE OF EXAM: 07/20/2021 COMPARISON: NONE HISTORY: Cough TECHNIQUE: Frontal and lateral views of the chest are obtained. FINDINGS: There is no focal air space opacity, pleural effusion, or pneumothorax seen. The cardiac silhouette size is within normal limits. There is elevated right hemidiaphragm, possible eventration The osseous structures are intact flowing anterior osteophytes noted over the thoracic spine with pr eservation of disc height suggestive of diffuse idiopathic skeletal hyperostosis. IMPRESSION: No acute cardiopulmonary process.
[2021-07-20 22:21] LABS: Basophils # (A) 0.04 X 10*3/uL (0.00-0.10); Basophils % (A) 0.6 %; Eosinophils # (A) 0.08 X 10*3/uL (0.04-0.35); Eosinophils % (A) 1.2 %; HCT 44.4 % (39.6-50.0); HGB 14.8 g/dL (13.0-17.0); Lymphocytes # (A) 2.36 X 10*3/uL (0.90-5.00); Lymphocytes % (A) 35.1 %; MCH 30.2 pg (27.0-32.0); MCHC 33.3 g/dL (32.0-37.0); MCV 90.6 fL (80.0-97.0); Mean Platelet Volume 9.9 fL (9.5-12.2); Monocytes % (A) 7.4 %; Neutrophils # (A) 3.64 X 10*3/uL (1.80-7.70); Neutrophils % (A) 54.2 %; Platelet Count 206 X 10*3/uL (140-440); RDW 11.5 % (11.5-14.5); WBC 6.72 X 10*3/uL (4.50-10.00)
[2021-07-21 01:15] LABS: African American GFR (CKD) 123.2 (60.0-200.0); Albumin 4.7 g/dL (3.8-4.9); Albumin/Globulin Ratio 1.74 (1.60-3.17); BUN/Creat Ratio 12.42 Ratio (12.00-20.00); Blood Urea Nitrogen 10.3 mg/dL (9.0-27.0); C Reactive Protein 0.3 mg/dL (0.00-0.80); Calcium 9.6 mg/dL (8.7-10.3); Carbon Dioxide 26.3 mmol/L (20.0-27.5); Globulin 2.7 g/dL (1.6-3.3); Non-African American GFR(CKD) 106.3 (60.0-200.0); Potassium 4.5 mmol/L (3.5-5.5); Total Bilirubin 0.2 mg/dL (0.30-1.20); Total Protein 7.5 g/dL (6.2-8.2)
== END | disposition home or self-care (01) ==
LOC: LABWHC1 14:56
PROVIDERS: ATTEND Internal Medicine
DX: R05.9 Cough, unspecified (principal)
CPT/HCPCS: 36415; 71046; 80053; 85025; 86140

== ENCOUNTER 2022-08-06 08:09 | Inpatient (IN) | payer MEDICAID, OTHER ==
--- NOTE | 2022-08-06 08:36 | ED ---
Psych HPI - General Source: patient, police, RN notes reviewed Mode of arrival: ambulatory Limitations: no limitations <Ravi Monae - Last Filed: 08/06/22 13:59> <Milton Noel - Last Filed: 08/06/22 14:45> - General Stated Complaint: mental health Time Seen by Provider: 08/06/22 08:18 - History of Present Illness Initial Comments: This a 47-year-old male presents emergency Department with police for psychiatric evaluation. Patient was brought in on court order as patient states he has missed his appointment. He is due for his Abilify. He does have history of drug abuse but states has not used recently. Patient denies being suicidal, homicidal. Denies any physical complaints. Patient states that his been working he states he feels very stable he offers no other associated complaints. Patient has normal drug ALLERGIES. (Ravi Monae) - Related Data Home Medications Medication Instructions Recorded Confirmed ARIPiprazole [Abilify Maintena] 300 mg PO Q30D 08/06/22 08/06/22 Citalopram Hydrobromide [CeleXA] 40 mg PO DAILY 08/06/22 08/06/22 Enalapril [Vasotec] 20 mg PO BID 08/06/22 08/06/22 traZODone HCL [Desyrel] 50 mg PO HS 08/06/22 08/06/22 Previous Rx's Medication Instructions Recorded Metoprolol Tartrate [Lopressor] 50 mg PO BID 30 Days tab 11/02/20 hydrALAZINE HCL [Apresoline] 50 mg PO DAILY 30 Days tab 11/02/20 Allergies Allergy/AdvReac Type Severity Reaction Status Date / Time No Known Allergies Allergy Verified 08/06/22 11:19 Review of Systems ROS Other: All systems not noted in ROS Statement are negative. <Ravi Monae - Last Filed: 08/06/22 13:59> ROS Other: All systems not noted in ROS Statement are negative. <Milton Noel - Last Filed: 08/06/22 14:45> ROS Statement: Those systems with pertinent positive or pertinent negative responses have been documented in the HPI. Past Medical History Past Medical History: Hypertension History of Any Multi-Drug Resistant Organisms: None Reported Past Surgical History: Hernia Repair Past Anesthesia/Blood Transfusion Reactions: No Reported Reaction Past Psychological History: ADD/ADHD, Anxiety, Depression Smoking Status: Light tobacco smoker Past Alcohol Use History: Occasional Past Drug Use History: Cocaine, Marijuana <Ravi Monae - Last Filed: 08/06/22 13:59> General Exam Limitations: no limitations General appearance: alert, in no apparent distress Head exam: Present: atraumatic, normocephalic, normal inspection Eye exam: Present: normal appearance, PERRL, EOMI. Absent: scleral icterus, conjunctival injection, periorbital swelling ENT exam: Present: normal exam, normal oropharynx, mucous membranes moist Neck exam: Present: normal inspection, full ROM. Absent: tenderness, meningismus, lymphadenopathy Respiratory exam: Present: normal lung sounds bilaterally. Absent: respiratory distress, wheezes, rales, rhonchi, stridor Cardiovascular Exam: Present: regular rate, normal rhythm, normal heart sounds. Absent: systolic murmur, diastolic murmur, rubs, gallop, clicks Neurological exam: Present: alert, oriented X3, CN II-XII intact Psychiatric exam: Present: normal affect, normal mood Skin exam: Present: warm, dry, intact, normal color. Absent: rash <Ravi Monae - Last Filed: 08/06/22 13:59> Course <Milton Noel - Last Filed: 08/06/22 14:45> Vital Signs 08/06/22 08:24 Temperature 97.7 F Pulse Rate 68 Respiratory 20 Rate Blood Pressure 130/78 O2 Sat by Pulse 99 Oximetry - Reevaluation(s) Reevaluation #1: 08/06/22 14:45 Clinical certification is filled out by Dr. Bert cai (Milton Noel) Medical Decision Making <Ravi Monae - Last Filed: 08/06/22 13:59> - Medical Decision Making 47-year-old male presented for psychiatric evaluation patient will be admitted for psychiatric treatment patient did receive a injection of Abilify. (Ravi Monae) - Lab Data Lab Results 08/06/22 08/06/22 Range/Units 12:25 14:07 Urine Opiates Screen Not Detected (NotDetected) Ur Oxycodone Screen Not Detected (NotDetected) Urine Methadone Screen Not Detected (NotDetected) Ur Propoxyphene Screen Not Detected (NotDetected) Ur Barbiturates Screen Not Detected (NotDetected) U Tricyclic Antidepress Not Detected (NotDetected) Ur Phencyclidine Scrn Not Detected (NotDetected) Ur Amphetamines Screen Not Detected (NotDetected) U Methamphetamines Scrn Not Detected (NotDetected) U Benzodiazepines Scrn Not Detected (NotDetected) Urine Cocaine Screen Detected H (NotDetected) U Marijuana (THC) Screen Not Detected (NotDetected) Coronavirus (PCR) Not Detected (Not Detectd) Disposition Time of Disposition: 14:00 <Ravi Monae - Last Filed: 08/06/22 13:59> <Milton Noel - Last Filed: 08/06/22 14:45> Clinical Impression: Bipolar 2 disorder, Acute psychosis Disposition: TRANSFER TO PSYCH HOSP/UNIT Condition: Stable Referrals: None,Stated [Primary Care Provider] - 1-2 days
[2022-08-06 13:01] LABS: Amphetamine Screen,Urine Not Detected (NotDetected); Barbiturate Screen,Urine Not Detected (NotDetected); Benzodiazepines Screen,Urine Not Detected (NotDetected); Cocaine Screen,Urine Detected (NotDetected); Methadone Screen, Urine Not Detected (NotDetected); Opiate Screen,Urine Not Detected (NotDetected); Oxycodone Screen, Urine Not Detected (NotDetected); Phencyclidine Screen,Urine Not Detected (NotDetected); Tricyclic Antidepressant,Urine Not Detected (NotDetected); Urn Cannabinoid Scrn Not Detected (NotDetected)
[2022-08-06] MEDS ORDERED: ARIPiprazole IM 400 MG VIAL (NO COST) PHARMACY STOCK IM ONE (13:45)
[2022-08-06] MEDS ORDERED: HALOPERIDOL LACTATE 5 MG/ML 1 ML VIAL IM PRN (15:22)
[2022-08-06] MEDS ORDERED: ACETAMINOPHEN TAB 325 MG TAB PO PRN (15:22)
[2022-08-06] MEDS ORDERED: MAG HYDROX/AL HYDROX/SIMETH 355 ML BOTTLE PO PRN (15:22)
[2022-08-06] MEDS ORDERED: MAGNESIUM HYDROXIDE 2,400 MG/10 ML CUP PO PRN (15:22)
[2022-08-06] MEDS ORDERED: LORazepam 1 MG TAB PO PRN (15:22)
[2022-08-06] MEDS ORDERED: LORazepam 2 MG/ML INJ IM PRN (15:49)
[2022-08-06] MEDS ORDERED: haloperidoL 5 MG TAB PO PRN (15:50)
[2022-08-06 16:34] VITALS: BP 135/90; PULSE 66; RESP 18; TEMP 97.3
[2022-08-06] MEDS ORDERED: traZODone HCL 50 MG TAB PO SCH (21:00)
[2022-08-06] MEDS: lisinopriL 20 MG TAB PO SCH (21:38)
[2022-08-06] MEDS: METOPROLOL TARTRATE 50 MG TAB PO SCH (21:38)
[2022-08-07] MEDS: lisinopriL 20 MG TAB PO SCH (08:46)
[2022-08-07] MEDS: METOPROLOL TARTRATE 50 MG TAB PO SCH (08:48)
[2022-08-07] MEDS ORDERED: CITALOPRAM HYDROBROMIDE 20 MG TAB PO SCH (09:00)
[2022-08-07] MEDS ORDERED: hydrALAZINE HCL 50 MG TAB PO SCH (09:00)
[2022-08-07] MEDS ORDERED: NICOTINE 14MG/24HR PATCH TRANSDERM SCH (09:00)
[2022-08-07 09:58] LABS: Basophils % (A) 1 %; Eosinophils # (A) 0.2 k/uL (0-0.7); Eosinophils % (A) 3 %; HGB 15.2 gm/dL (13.0-17.5); Lymphocytes # (A) 1.5 k/uL (1.0-4.8); Lymphocytes % (A) 28 %; MCH 30.7 pg (25.0-35.0); MCHC 33.8 g/dL (31.0-37.0); MCV 90.8 fL (80.0-100.0); Mean Platelet Volume 8.2; Monocytes # (A) 0.2 k/uL (0-1.0); Monocytes % (A) 4 %; Neutrophils # (A) 3.4 k/uL (1.3-7.7); Neutrophils % (A) 63 %; Platelet Count 214 k/uL (150-450); RBC 4.96 m/uL (4.30-5.90); RDW 12.3 % (11.5-15.5); WBC 5.5 k/uL (3.8-10.6)
[2022-08-07 10:12] LABS: ALT 25 U/L (4-49); AST 24 U/L (17-59); African American GFR (CKD) >90 (>60 ml/min/1.73 sqM); Albumin 4.1 g/dL (3.5-5.0); Alkaline Phosphatase 85 U/L (38-126); Anion Gap 7 mmol/L; Blood Urea Nitrogen 19 mg/dL (9-20); Calcium 8.9 mg/dL (8.4-10.2); Carbon Dioxide 24 mmol/L (22-30); Chloride 104 mmol/L (98-107); Glucose 197 mg/dL (74-99); Non-African American GFR(CKD) >90 (>60 ml/min/1.73 sqM); Potassium 4.6 mmol/L (3.5-5.1); Sodium 135 mmol/L (137-145); Total Bilirubin 0.4 mg/dL (0.2-1.3); Total Protein 6.9 g/dL (6.3-8.2)
--- NOTE | 2022-08-07 10:55 | P.HP ---
Psychiatric H&P - . H&P Date: 08/07/22 History & Physical: Allergies Allergy/AdvReac Type Severity Reaction Status Date / Time No Known Allergies Allergy Verified 08/06/22 11:19 Vital Signs Temp 97.3 F L 08/06/22 16:25 Pulse 66 08/06/22 16:25 Resp 18 08/06/22 16:25 BP 135/90 08/06/22 16:25 Pulse Ox 98 08/06/22 16:25 FiO2 Intake & Output 08/06/22 08/07/22 08/07/22 18:59 06:59 18:59 Weight 116.573 kg Laboratory Last Values WBC 5.5 k/uL (3.8-10.6) 08/07/22 09:33 RBC 4.96 m/uL (4.30-5.90) 08/07/22 09:33 Hgb 15.2 gm/dL (13.0-17.5) 08/07/22 09:33 Hct 45.0 % (39.0-53.0) 08/07/22 09:33 MCV 90.8 fL (80.0-100.0) 08/07/22 09:33 MCH 30.7 pg (25.0-35.0) 08/07/22 09:33 MCHC 33.8 g/dL (31.0-37.0) 08/07/22 09:33 RDW 12.3 % (11.5-15.5) 08/07/22 09:33 Plt Count 214 k/uL (150-450) 08/07/22 09:33 MPV 8.2 08/07/22 09:33 Neutrophils % 63 % 08/07/22 09:33 Lymphocytes % 28 % 08/07/22 09:33 Monocytes % 4 % 08/07/22 09:33 Eosinophils % 3 % 08/07/22 09:33 Basophils % 1 % 08/07/22 09:33 Neutrophils # 3.4 k/uL (1.3-7.7) 08/07/22 09:33 Lymphocytes # 1.5 k/uL (1.0-4.8) 08/07/22 09:33 Monocytes # 0.2 k/uL (0-1.0) 08/07/22 09:33 Eosinophils # 0.2 k/uL (0-0.7) 08/07/22 09:33 Basophils # 0.0 k/uL (0-0.2) 08/07/22 09:33 Sodium 135 mmol/L (137-145) L 08/07/22 09:33 Potassium 4.6 mmol/L (3.5-5.1) 08/07/22 09:33 Chloride 104 mmol/L (98-107) 08/07/22 09:33 Carbon Dioxide 24 mmol/L (22-30) 08/07/22 09:33 Anion Gap 7 mmol/L 08/07/22 09:33 BUN 19 mg/dL (9-20) 08/07/22 09:33 Creatinine 0.86 mg/dL (0.66-1.25) 08/07/22 09:33 Est GFR (CKD-EPI)AfAm >90 (>60 ml/min/1.73 sqM) 08/07/22 09:33 Est GFR (CKD-EPI)NonAf >90 (>60 ml/min/1.73 sqM) 08/07/22 09:33 Glucose 197 mg/dL (74-99) H 08/07/22 09:33 Calcium 8.9 mg/dL (8.4-10.2) 08/07/22 09:33 Total Bilirubin 0.4 mg/dL (0.2-1.3) 08/07/22 09:33 AST 24 U/L (17-59) 08/07/22 09:33 ALT 25 U/L (4-49) 08/07/22 09:33 Alkaline Phosphatase 85 U/L (38-126) 08/07/22 09:33 Total Protein 6.9 g/dL (6.3-8.2) 08/07/22 09:33 Albumin 4.1 g/dL (3.5-5.0) 08/07/22 09:33 TSH 2.160 mIU/L (0.465-4.680) 08/07/22 09:33 Urine Opiates Screen Not Detected (NotDetected) 08/06/22 12:25 Ur Oxycodone Screen Not Detected (NotDetected) 08/06/22 12:25 Urine Methadone Screen Not Detected (NotDetected) 08/06/22 12:25 Ur Propoxyphene Screen Not Detected (NotDetected) 08/06/22 12:25 Ur Barbiturates Screen Not Detected (NotDetected) 08/06/22 12:25 U Tricyclic Antidepress Not Detected (NotDetected) 08/06/22 12:25 Ur Phencyclidine Scrn Not Detected (NotDetected) 08/06/22 12:25 Ur Amphetamines Screen Not Detected (NotDetected) 08/06/22 12:25 U Methamphetamines Scrn Not Detected (NotDetected) 08/06/22 12:25 U Benzodiazepines Scrn Not Detected (NotDetected) 08/06/22 12:25 Urine Cocaine Screen Detected (NotDetected) H 08/06/22 12:25 U Marijuana (THC) Screen Not Detected (NotDetected) 08/06/22 12:25 Coronavirus (PCR) Not Detected (Not Detectd) 08/06/22 14:07 08/07/22 10:54 IDENTIFYING DATA: Patient is a single, employed, 47-year-old male who presented to the psychiatric unit on a pickup order for nonadherence with treatment and intermittent episodes of anger. HPI: Patient presented to the hospital on 08/06/2022 brought in on a grain picker order for nonadherence with his psychiatric treatment. The patient has been missing his monthly dose of Abilify maintena 300 mg IM since July 05. Furthermore, her treatment team is made aware that the patient has had intermittent episodes of rage and anger towards his mother and his stepfather. He also tested positive for crack cocaine. He is noted in the letter from his family to intermittently steal from his parents and spent recklessly. The patient did receive Abilify maintena 300 mg IM in the emergenct department and was subsequently admitted to our psychiatric unit. Upon evaluation on the psychiatric unit, the patient is presenting is bright and friendly. He is currently denying any suicidal or homicidal ideation, intention, and/or plan. He is not reporting any auditory or visual hallucinations. He denies any paranoia or other delusions. He is not endorsing any significant symptoms of gena and reports that he has been sleeping and eating well. 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 The patient does admit to crack cocaine use and was counseled at great length on abstaining from all substances including alcohol, marijuana, and crack cocaine. The patient does admit that he has anger issues. He is in agreement to continue with his treatment with [facility] and to take his medications as directed. He is not reporting any periods of excessive energy, grandiosity, mood lability, or any delusional thoughts or behaviors. He has been cooperative and calm with staff and peers. PAST PSYCHIATRIC HISTORY: Patient has been previously diagnosed with bipolar 2 disorder, cocaine use disorder, alcohol abuse. The patient's home medications include Abilify maintena 300 mg IM monthly, citalopram, and trazodone. Was last hospitalized on our psychiatric unit in October 2020. He is open with [facility]. He denies any prior attempts at suicide. PMH: Past Medical History: Hypertension History of Any Multi-Drug Resistant Organisms: None Reported Past Surgical History: Hernia Repair Past Anesthesia/Blood Transfusion Reactions: No Reported Reaction Past Psychological History: ADD/ADHD, Anxiety, Depression Smoking Status: Light tobacco smoker Past Alcohol Use History: Occasional Past Drug Use History: Cocaine, Marijuana ALLERGIES: NO KNOWN DRUG ALLERGIES CHEMICAL DEPENDENCY HISTORY: The patient does admit to use of crack cocaine. He reports that his last use was last week. He states that he uses typically monthly. He denies any tobacco, alcohol, or marijuana use. FAMILY PSYCHIATRIC/SUBSTANCE USE HISTORY: He reports that his family has a history of depression. SOCIAL HISTORY: Patient was born and raised in [place]. He has been living with his mother and stepfather. His biological mother and father are . His younger brother lives in [place]. He is single, and has no children. He is currently employed. MENTAL STATUS EXAM: General Appearance: Patient appears to be stated age is alert, directable, and attempts to cooperate. Patient appears to have fair hygiene and grooming. Behavior: Patient is seated without any agitated behavior. Normal psychomotor activity. Eye contact is appropriate. Speech: Patient's speech is fluent and nonpressured. Mood/Affect: Patient reports their mood is "feeling pretty good," affect is congruent, bright, and friendly Suicidality/Homicidality: Patient vehemently denies any suicidal or homicidal ideation Perceptions: Patient denies any visual hallucinations and denies any auditory hallucinations Though content/process: There is no evidence of any delusional thought content and thought process is linear and goal-directed. Memory and concentration: AOX3, grossly intact for the purposes of this session. Can spell "WORLD" backwards Judgment and insight: Fair STRENGTHS/WEAKNESSES: Strength is that the patient is gainfully employed. Weakness is that the patient engage in cocaine use INTELLECT: average IMPRESSIONS: Bipolar 2 disorder Cocaine use disorder Nonadherence with treatment Rule out antisocial personality disorder PLAN: -Patient is admitted under voluntary status to MHU for stabilization of psychiatric symptoms and safety however, the patient does not meet criteria for inpatient psychiatric admission and will be discharged today. -Patient was continued on his home medications of citalopram, trazodone, and received Abilify maintena 300 mg IM yesterday. Due to his late dosage of abilify, he will be supplemented with oral abilify for 15 days. -The patient does not meet criteria for inpatient psychiatric hospitalization therefore will be subsequently discharged. 08/07/22 10:54
--- NOTE | 2022-08-07 10:58 | P.DS ---
Providers Date of admission: 08/06/22 14:57 Expected date of discharge: 08/07/22 Attending physician: Bert Da Silva MD Consults: 08/06/22 15:22 Consult Physician Routine Consulting Provider: Paris Roberto Consult Reason/Comments: medical management Do you want consulting provider notified?: Yes Primary care physician: Stated None - Discharge Diagnosis(es) (1) Bipolar 2 disorder Current Visit: Yes Status: Acute Priority: High (2) Cocaine use disorder Current Visit: Yes Status: Acute Priority: High Hospital Course: Admission HPI: Patient is a single, employed, 47-year-old male who presented to the psychiatric unit on a pickup order for nonadherence with treatment and intermittent episodes of anger. Patient presented to the hospital on 08/06/2022 brought in on a fruit picker order for nonadherence with his psychiatric treatment. The patient has been missing his monthly dose of Abilify maintena 300 mg IM since July 05. Furthermore, her treatment team is made aware that the patient has had intermittent episodes of rage and anger towards his mother and his stepfather. He also tested positive for crack cocaine. He is noted in the letter from his family to intermittently steal from his parents and spent recklessly. The patient did receive Abilify maintena 300 mg IM in the emergenct department and was subsequently admitted to our psychiatric unit. Upon evaluation on the psychiatric unit, the patient is presenting is bright and friendly. He is currently denying any suicidal or homicidal ideation, intention, and/or plan. He is not reporting any auditory or visual hallucinations. He denies any paranoia or other delusions. He is not endorsing any significant symptoms of gena and reports that he has been sleeping and eating well. 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 The patient does admit to crack cocaine use and was counseled at great length on abstaining from all substances including alcohol, marijuana, and crack cocaine. The patient does admit that he has anger issues. He is in agreement to continue with his treatment with [facility] and to take his medications as directed. He is not reporting any periods of excessive energy, grandiosity, mood lability, or any delusional thoughts or behaviors. He has been cooperative and calm with staff and peers. Patient has been previously diagnosed with bipolar 2 disorder, cocaine use disorder, alcohol abuse. The patient's home medications include Abilify maintena 300 mg IM monthly, citalopram, and trazodone. Was last hospitalized on our psychiatric unit in October 2020. He is open with [facility]. He denies any prior attempts at suicide. Hospital course: Upon admission to the unit patient was initially presenting as bright and was calm and cooperative throughout this hospitalization. He received his Abilify maintena 300 mg IM in the ED prior to admission to the unit. Upon evaluation on the unit, the patient was not endorsing any suicidal or homicidal ideation, intention, and/or plan. He reported no auditory or visual hallucinations. He reported no paranoia or other delusions. He did not appear to be in any manic or psychotic episode. Despite the concerns presented by the patient's family, it is likely attributed to the patient's substance use disorder. The patient was counseled great length on the importance of medication adherence and approp riate outpatient follow-up. The patient does admit to cocaine use problem and was counseled at great length on abstaining from all substances including alcohol, marijuana, crack cocaine, and other illicit substances. The patient was offered however declined inpatient substance-abuse rehabilitation as he is future oriented and wishes to return back to work before his workshop down for the winter. As the patient did not meet any criteria for inpatient psychiatric admission, he was subsequently discharged. Mental status exam: General Appearance: Patient appears to be stated age is alert, directable, and attempts to cooperate. Patient appears to have fair hygiene and grooming. Behavior: Patient is seated without any agitated behavior. Normal psychomotor activity. Eye contact is appropriate. Speech: Patient's speech is fluent and nonpressured. Mood/Affect: Patient reports their mood is "feeling pretty good," affect is congruent, bright, and friendly Suicidality/Homicidality: Patient vehemently denies any suicidal or homicidal ideation Perceptions: Patient denies any visual hallucinations and denies any auditory hallucinations Though content/process: There is no evidence of any delusional thought content and thought process is linear and goal-directed. Memory and concentration: AOX3, grossly intact for the purposes of this session. Can spell "WORLD" backwards Judgment and insight: Fair Impression: Bipolar 2 disorder Cocaine use disorder Nonadherence with treatment Rule out antisocial personality disorder Plan: -Continue with discharge today as patient has improved and stabilized psychiatrically and is not currently an imminent threat to himself and/or others. Patient will remain at chronically elevated risk due to his crack cocaine use. -Continue medications: Abilify 10 mg by mouth daily for 15 days to augment his sleep dose of Abilify maintena 300 mg IM (administered on 08/06/2022) Citalopram 40 mg by mouth daily Trazodone 50 mg by mouth at bedtime -Patient was counseled on the need for medication compliance and appropriate follow-up at mental health and also primary care for medical issues. Patient verbalized understanding and agreed. -Social work to arrange for and conduct family meeting to ensure safety upon discharge and answer any questions/concerns. Social work also to arrange for patients follow up appointments with [facility] for psychiatric care along with follow up with primary care provider. -Patient counseled on abstaining from recreational drugs and marijuana and alcohol. Was informed/educated on the adverse effects on their physical and me ntal health. Patient verbally agreed and understood. Patient was offered substance abuse treatment however declined at this time. -Patient was instructed to return to the hospital or seek immediate medical care if their psychiatric or medical symptoms do worsen or reoccur. -Psychoeducation and supportive therapy provided to patient. Risks and benefits of pharmacological treatment versus the risks and benefits of nontreatment weight and discussed. Informed consent discussion held. Common side effects of psychotropics discussed such as, but not limited to headache, GI disturbance, sexual dysfunction, movement disorders, sedation, and orthostatic hypotension. Life threatening and blackbox warnings of prescribed medications also discussed. Potential risks of operating a vehicle or heavy machinery discussed with patient at length. Advised on importance of compliance and a reliable and responsible manner. Patient advised to review FDA consumer labeling of all medications prior to taking. Patient verbalized understanding of potential risks, and agrees with current treatment plan. Patient advised to medically contact physician/emergency personnel if any acute changes in condition occur. Vital Signs Temp 97.3 F L 08/06/22 16:25 Pulse 66 08/06/22 16:25 Resp 18 08/06/22 16:25 BP 135/90 08/06/22 16:25 Pulse Ox 98 08/06/22 16:25 FiO2 Intake & Output 08/06/22 08/07/22 08/07/22 18:59 06:59 18:59 Weight 116.573 kg Laboratory Results WBC 5.5 k/uL (3.8-10.6) 08/07/22 09:33 RBC 4.96 m/uL (4.30-5.90) 08/07/22 09:33 Hgb 15.2 gm/dL (13.0-17.5) 08/07/22 09:33 Hct 45.0 % (39.0-53.0) 08/07/22 09:33 MCV 90.8 fL (80.0-100.0) 08/07/22 09:33 MCH 30.7 pg (25.0-35.0) 08/07/22 09:33 MCHC 33.8 g/dL (31.0-37.0) 08/07/22 09:33 RDW 12.3 % (11.5-15.5) 08/07/22 09:33 Plt Count 214 k/uL (150-450) 08/07/22 09:33 MPV 8.2 08/07/22 09:33 Neutrophils % 63 % 08/07/22 09:33 Lymphocytes % 28 % 08/07/22 09:33 Monocytes % 4 % 08/07/22 09:33 Eosinophils % 3 % 08/07/22 09:33 Basophils % 1 % 08/07/22 09:33 Neutrophils # 3.4 k/uL (1.3-7.7) 08/07/22 09:33 Lymphocytes # 1.5 k/uL (1.0-4.8) 08/07/22 09:33 Monocytes # 0.2 k/uL (0-1.0) 08/07/22 09:33 Eosinophils # 0.2 k/uL (0-0.7) 08/07/22 09:33 Basophils # 0.0 k/uL (0-0.2) 08/07/22 09:33 Sodium 135 mmol/L (137-145) L 08/07/22 09:33 Potassium 4.6 mmol/L (3.5-5.1) 08/07/22 09:33 Chloride 104 mmol/L (98-107) 08/07/22 09:33 Carbon Dioxide 24 mmol/L (22-30) 08/07/22 09:33 Anion Gap 7 mmol/L 08/07/22 09:33 BUN 19 mg/dL (9-20) 08/07/22 09:33 Creatinine 0.86 mg/dL (0.66-1.25) 08/07/22 09:33 Est GFR (CKD-EPI)AfAm >90 (>60 ml/min/1.73 sqM) 08/07/22 09:33 Est GFR (CKD-EPI)NonAf >90 (>60 ml/min/1.73 sqM) 08/07/22 09:33 Glucose 197 mg/dL (74-99) H 08/07/22 09:33 Calcium 8.9 mg/dL (8.4-10.2) 08/07/22 09:33 Total Bilirubin 0.4 mg/dL (0.2-1.3) 08/07/22 09:33 AST 24 U/L (17-59) 08/07/22 09:33 ALT 25 U/L (4-49) 08/07/22 09:33 Alkaline Phosphatase 85 U/L (38-126) 08/07/22 09:33 Total Protein 6.9 g/dL (6.3-8.2) 08/07/22 09:33 Albumin 4.1 g/dL (3.5-5.0) 08/07/22 09:33 TSH 2.160 mIU/L (0.465-4.680) 08/07/22 09:33 Urine Opiates Screen Not Detected (NotDetected) 08/06/22 12:25 Ur Oxycodone Screen Not Detected (NotDetected) 08/06/22 12:25 Urine Methadone Screen Not Detected (NotDetected) 08/06/22 12:25 Ur Propoxyphene Screen Not Detected (NotDetected) 08/06/22 12:25 Ur Barbiturates Screen Not Detected (NotDetected) 08/06/22 12:25 U Tricyclic Antidepress Not Detected (NotDetected) 08/06/22 12:25 Ur Phencyclidine Scrn Not Detected (NotDetected) 08/06/22 12:25 Ur Amphetamines Screen Not Detected (NotDetected) 08/06/22 12:25 U Methamphetamines Scrn Not Detected (NotDetected) 08/06/22 12:25 U Benzodiazepines Scrn Not Detected (NotDetected) 08/06/22 12:25 Urine Cocaine Screen Detected (NotDetected) H 08/06/22 12:25 U Marijuana (THC) Screen Not Detected (NotDetected) 08/06/22 12:25 Coronavirus (PCR) Not Detected (Not Detectd) 08/06/22 14:07 Allergies Allergy/AdvReac Type Severity Reaction Status Date / Time No Known Allergies Allergy Verified 08/06/22 11:19 Patient Condition at Discharge: Stable Plan - Discharge Summary Discharge Rx Participant: No New Discharge Prescriptions: New Citalopram Hydrobromide [CeleXA] 40 mg PO DAILY 30 Days tab traZODone HCL [Desyrel] 50 mg PO HS 30 Days tab ARIPiprazole [Abilify] 10 mg PO DAILY 15 Days tab Continue hydrALAZINE HCL [Apresoline] 50 mg PO DAILY 30 Days tab Metoprolol Tartrate [Lopressor] 50 mg PO BID 30 Days tab ARIPiprazole [Abilify Maintena] 300 mg PO Q30D #1 each Enalapril [Vasotec] 20 mg PO BID Discontinued traZODone HCL [Desyrel] 50 mg PO HS Citalopram Hydrobromide [CeleXA] 40 mg PO DAILY Discharge Medication List Metoprolol Tartrate [Lopressor] 50 mg PO BID 30 Days tab 11/02/20 [Rx] hydrALAZINE HCL [Apresoline] 50 mg PO DAILY 30 Days tab 11/02/20 [Rx] Enalapril [Vasotec] 20 mg PO BID 08/06/22 [History] ARIPiprazole [Abilify Maintena] 300 mg PO Q30D #1 each 08/07/22 [Rx] ARIPiprazole [Abilify] 10 mg PO DAILY 15 Days tab 08/07/22 [Rx] Citalopram Hydrobromide [CeleXA] 40 mg PO DAILY 30 Days tab 08/07/22 [Rx] traZODone HCL [Desyrel] 50 mg PO HS 30 Days tab 08/07/22 [Rx] Follow up Appointment(s)/Referral(s): [facility] [NON-STAFF] - 1-2 Days Patient Instructions/Handouts: Cocaine Abuse (DC), Bipolar Disorder (DC), Depression (DC), Abuse of Alcohol (DC) Activity/Diet/Wound Care/Special Instructions: Avoid the use of street drugs and alcohol. Take all prescriptions as prescribed. When you are in need of refills on your medications, please contact your medical provider and/or outpatient psychiatrist to have this done. Please go to scheduled outpatient appointment for aftercare treatment. If symptoms return or become worse, call the crisis line at and/or go to the nearest emergency room for evaluation Discharge Disposition: HOME SELF-CARE
[2022-08-08 01:49] LABS: Chol/HDL Ratio 5.06 Ratio
[2022-09-05] MEDS ORDERED: ARIPiprazole IM 400 MG VIAL (NO COST) PHARMACY STOCK IM SCH (12:00)
== END 2022-08-07 13:40 | disposition home or self-care (01) | DRG 885 ==
LOC: EC 08:09 → 3MHU 14:57
PROVIDERS: ADMIT Psychiatry & Neurology Psychiatry; ATTEND Psychiatry & Neurology Psychiatry
DX: F31.81 Bipolar II disorder (principal); F23 Brief psychotic disorder; F10.10 Alcohol abuse, uncomplicated; F14.10 Cocaine abuse, uncomplicated; Z20.822 Contact with and (suspected) exposure to COVID-19; F41.9 Anxiety disorder, unspecified; I10 Essential (primary) hypertension; F90.9 Attention-deficit hyperactivity disorder, unspecified type; F17.220 Nicotine dependence, chewing tobacco, uncomplicated; Z71.6 Tobacco abuse counseling; Z79.899 Other long term (current) drug therapy; Z71.51 Drug abuse counseling and surveillance of drug abuser; Z71.41 Alcohol abuse counseling and surveillance of alcoholic
CPT/HCPCS: 80053; 80061; 80306; 82075; 83036; 83721; 84443; 85025; 87635; 93005; 96372; 99285

== ENCOUNTER 2023-02-03 11:20 | Emergency (ER) | payer OTHER ==
--- NOTE | 2023-02-03 13:29 | ED ---
Nausea/Vomiting/Diarrhea HPI - General Source: patient, RN notes reviewed Mode of arrival: ambulatory Limitations: no limitations <Kimberlyn Valentino - Last Filed: 02/03/23 13:28> <Shaina Mcgill - Last Filed: 02/03/23 21:19> - General Chief complaint: Recheck/Abnormal Lab/Rx Stated complaint: poss dehydration Time Seen by Provider: 02/03/23 13:28 - History of Present Illness Initial comments: This is a 47-year-old male who presents to the emergency department for concerns of dehydration. He's been having nausea and vomiting for the last couple of days. Reports generalized abdominal pain, which he believes to be related to the vomiting. Denies any sick contacts. (Kimberlyn Valentino) Patient is a 47-year-old male who presents to the emergency department with concern for dehydration. Patient reports intermittent vomiting for the past week and a half, nonbloody. He has not had any vomiting and a couple of days. Patient states he has been more tired than usual and has been sleeping a lot he feels weak. He denies fever, chills, abdominal pain, diarrhea, blood in stool, burning with urination, blood in urine. Denies chest pain, shortness of breath, upper respiratory symptoms. Patient eating Garcia's and drinking ice tea during evaluation. (Shaina Mcgill) - Related Data Home Medications Medication Instructions Recorded Confirmed Enalapril [Vasotec] 20 mg PO BID 08/06/22 08/06/22 Previous Rx's Medication Instructions Recorded Metoprolol Tartrate [Lopressor] 50 mg PO BID 30 Days tab 11/02/20 hydrALAZINE HCL [Apresoline] 50 mg PO DAILY 30 Days tab 11/02/20 ARIPiprazole [Abilify Maintena] 300 mg PO Q30D #1 each 08/07/22 ARIPiprazole [Abilify] 10 mg PO DAILY 15 Days tab 08/07/22 Citalopram Hydrobromide [CeleXA] 40 mg PO DAILY 30 Days tab 08/07/22 traZODone HCL [Desyrel] 50 mg PO HS 30 Days tab 08/07/22 Ondansetron Odt [Zofran Odt] 4 mg PO Q8HR PRN #10 tab 02/03/23 Allergies Allergy/AdvReac Type Severity Reaction Status Date / Time shellfish derived [Shellfish] AdvReac Hives/Angio Verified 02/03/23 15:35 edema Review of Systems ROS Other: All systems not noted in ROS Statement are negative. <Kimberlyn Valentino - Last Filed: 02/03/23 13:28> ROS Other: All systems not noted in ROS Statement are negative. <Shaina Mcgill - Last Filed: 02/03/23 21:19> ROS Statement: Those systems with pertinent positive or pertinent negative responses have been documented in the HPI. Past Medical History Past Medical History: Hypertension History of Any Multi-Drug Resistant Organisms: None Reported Past Surgical History: Hernia Repair Past Anesthesia/Blood Transfusion Reactions: No Reported Reaction Past Psychological History: ADD/ADHD, Anxiety, Depression Smoking Status: Heavy tobacco smoker Past Alcohol Use History: None Reported Past Drug Use History: None Reported <Kimberlyn Valentino - Last Filed: 02/03/23 13:28> General Exam Limitations: no limitations <Kimberlyn Valentino - Last Filed: 02/03/23 13:28> General appearance: in no apparent distress Head exam: Present: atraumatic, normocephalic, normal inspection Eye exam: Present: normal appearance, PERRL, EOMI. Absent: scleral icterus, conjunctival injection, periorbital swelling ENT exam: Present: normal oropharynx Neck exam: Present: normal inspection, full ROM. Absent: tenderness, meningismus, lymphadenopathy Respiratory exam: Present: normal lung sounds bilaterally. Absent: respiratory distress, wheezes, rales, rhonchi, stridor Cardiovascular Exam: Present: regular rate, normal rhythm, normal heart sounds. Absent: systolic murmur, diastolic murmur, rubs, gallop, clicks GI/Abdominal exam: Present: soft, normal bowel sounds. Absent: distended, tenderness, guarding, rebound, rigid Neurological exam: Present: alert, oriented X3, CN II-XII intact Psychiatric exam: Present: normal affect, normal mood Skin exam: Present: warm, dry, intact, normal color. Absent: rash <Shaina Mcgill - Last Filed: 02/03/23 21:19> - General Exam Comments Initial Comments: Visual Physical Exam Vital signs reviewed General: Well-appearing, nontoxic, no acute distress. Head: Normocephalic, atraumatic Eyes: PERRLA, EOMI ENT: Airway patent Chest: Nonlabored breathing Skin: No visual rash, normal skin tone Neuro: Alert and oriented 3 Musculoskeletal: No gross abnormalities (Kimberlyn Valentino) Course Vital Signs 02/03/23 02/03/23 11:58 17:43 Temperature 98.2 F 98.1 F Pulse Rate 83 81 Respiratory 20 18 Rate Blood Pressure 122/82 139/87 O2 Sat by Pulse 99 98 Oximetry Medical Decision Making - Lab Data Result diagrams: 02/03/23 15:25 02/03/23 15:25 <Shaina Mcgill - Last Filed: 02/03/23 21:19> - Medical Decision Making EKG taken at 15:44, interpreted by myself sinus rhythm, incomplete right bundle branch block, nonspecific T-wave abnormality Ventricular rate 80, WA interval 162, QRS duration 102, QTC 394 Was pt. sent in by a medical professional or institution (, PA, BRASS CUTTER, urgent care, hospital, or care home...) When possible be specific @ -No Did you speak to anyone other than the patient for history (EMS, parent, family, police, friend...)? What history was obtained from this source @ -No Did you review nursing and triage notes (agree or disagree)? Why? @ -I reviewed and agree with nursing and triage notes Were old charts reviewed (outside hosp., previous admission, EMS record, old EKG, old radiological studies, urgent care reports/EKG's, care home records)? Report findings @ -No old charts were reviewed Differential Diagnosis (chest pain, altered mental status, abdominal pain women, abdominal pain men, vaginal bleeding, weakness, fever, dyspnea, syncope, headache, dizziness, GI bleed, back pain, seizure, CVA, palpatations, mental health)? @ -Differential Weakness: Hypoglycemia, shock, sepsis, hyponatremia, anemia, infection, MS, ETOH, adverse medicine reaction, overdose, stroke, this is not meant to be an all-inclusive list. EKG interpreted by me (3pts min.). @ -As above X-rays interpreted by me (1pt min.). @ -Negative for acute cardiopulmonary process CT interpreted by me (1pt min.). @ -None done U/S interpreted by me (1pt. min.). @ -None done What testing was considered but not performed or refused? (CT, X-rays, U/S, labs)? Why? @ -None What meds were considered but not given or refused? Why? @ -None Did you discuss the management of the patient with other professionals (professionals i.e. DrAbdoul, PA, BRASS CUTTER, lab, RT, psych nurse, secondary social studies teacher, well drill operator cable tool, teacher, welfare officer, test case developer)? Give summary @ -No Was smoking cessation discussed for >3mins.? @ -No Was critical care preformed (if so, how long)? @ -No Were there social determinants of health that impacted care today? How? (H omelessness, low income, unemployed, alcoholism, drug addiction, transportation, low edu. Level, literacy, decrease access to med. care, halfway, rehab)? @ -No Was there de-escalation of care discussed even if they declined (Discuss DNR or withdrawal of care, Hospice)? DNR status @ -No What co-morbidities impacted this encounter? (DM, HTN, Smoking, COPD, CAD, Cancer, CVA, ARF, Chemo, Hep., AIDS, mental health diagnosis, sleep apnea, morbid obesity)? @ -None Was patient admitted / discharged? Hospital course, mention meds given and route, prescriptions, significant lab abnormalities, going to OR and other pertinent info. @ -Patient presenting for evaluation of weakness. Patient well-appearing a Garcia's during evaluation. He is afebrile. Laboratory studies obtained and are relatively unremarkable. Chest x-ray interpreted by myself/radiology showing no acute cardiopulmonary process. Results discussed with patient. This tender node diagnostic studies to explain patient's symptoms. Patient feeling improved after fluid bolus he will be discharged with Zofran will need to follow up with his primary care provider. Undiagnosed new problem with uncertain prognosis? @ -No Drug Therapy requiring intensive monitoring for toxicity (Heparin, Nitro, Insulin, Cardizem)? @ -No Were any procedures done? @ -No Diagnosis/symptom? @ -weakness, fatigue, vomiting Acute, or Chronic, or Acute on Chronic? @ acute Uncomplicated (without systemic symptoms) or Complicated (systemic symptoms)? @ -uncomplicated Side effects of treatment? @ -No Exacerbation, Progression, or Severe Exacerbation? @ -No Poses a threat to life or bodily function? How? (Chest pain, USA, MS, pneumonia, PE, COPD, DKA, ARF, appy, cholecystitis, CVA, Diverticulitis, Homicidal, Suicidal, threat to staff... and all critical care pts) @ -[No] Dr. High is my attending (Shaina Mcgill) - Lab Data Lab Results 02/03/23 02/03/23 02/03/23 Range/Units 15:25 15:25 15:25 WBC 5.9 (3.8-10.6) k/uL RBC 4.75 (4.30-5.90) m/uL Hgb 14.4 (13.0-17.5) gm/dL Hct 42.8 (39.0-53.0) % MCV 90.1 (80.0-100.0) fL MCH 30.4 (25.0-35.0) pg MCHC 33.7 (31.0-37.0) g/dL RDW 13.3 (11.5-15.5) % Plt Count 297 (150-450) k/uL MPV 7.5 Neutrophils % 53 % Lymphocytes % 36 % Monocytes % 6 % Eosinophils % 4 % Basophils % 1 % Neutrophils # 3.1 (1.3-7.7) k/uL Lymphocytes # 2.1 (1.0-4.8) k/uL Monocytes # 0.4 (0-1.0) k/uL Eosinophils # 0.2 (0-0.7) k/uL Basophils # 0.0 (0-0.2) k/uL Sodium 140 (137-145) mmol/L Potassium 4.6 (3.5-5.1) mmol/L Chloride 105 (98-107) mmol/L Carbon Dioxide 27 (22-30) mmol/L Anion Gap 8 mmol/L BUN 15 (9-20) mg/dL Creatinine 0.82 (0.66-1.25) mg/dL Est GFR (CKD-EPI)AfAm >90 (>60 ml/min/1.73 sqM) Est GFR (CKD-EPI)NonAf >90 (>60 ml/min/1.73 sqM) Glucose 126 H (74-99) mg/dL Plasma Lactic Acid Luis 1.2 (0.7-2.0) mmol/L Calcium 9.2 (8.4-10.2) mg/dL Total Bilirubin 0.3 (0.2-1.3) mg/dL AST 41 (17-59) U/L ALT 81 H (4-49) U/L Alkaline Phosphatase 121 (38-126) U/L Total Protein 7.2 (6.3-8.2) g/dL Albumin 4.3 (3.5-5.0) g/dL Lipase 43 (23-300) U/L TSH (0.465-4.680) mIU/L Urine Color Urine Appearance (Clear) Urine pH (5.0-8.0) Ur Specific [place] (1.001-1.035) Urine Protein (Negative) Urine Glucose (UA) (Negative) Urine Ketones (Negative) Urine Blood (Negative) Urine Nitrite (Negative) Urine Bilirubin (Negative) Urine Urobilinogen (<2.0) mg/dL Ur Leukocyte Esterase (Negative) Heterophile Antibody (Negative) 02/03/23 02/03/23 02/03/23 Range/Units 15:25 16:22 16:23 WBC (3.8-10.6) k/uL RBC (4.30-5.90) m/uL Hgb (13.0-17.5) gm/dL Hct (39.0-53.0) % MCV (80.0-100.0) fL MCH (25.0-35.0) pg MCHC (31.0-37.0) g/dL RDW (11.5-15.5) % Plt Count (150-450) k/uL MPV Neutrophils % % Lymphocytes % % Monocytes % % Eosinophils % % Basophils % % Neutrophils # (1.3-7.7) k/uL Lymphocytes # (1.0-4.8) k/uL Monocytes # (0-1.0) k/uL Eosinophils # (0-0.7) k/uL Basophils # (0-0.2) k/uL Sodium (137-145) mmol/L Potassium (3.5-5.1) mmol/L Chloride (98-107) mmol/L Carbon Dioxide (22-30) mmol/L Anion Gap mmol/L BUN (9-20) mg/dL Creatinine (0.66-1.25) mg/dL Est GFR (CKD-EPI)AfAm (>60 ml/min/1.73 sqM) Est GFR (CKD-EPI)NonAf (>60 ml/min/1.73 sqM) Glucose (74-99) mg/dL Plasma Lactic Acid Luis (0.7-2.0) mmol/L Calcium (8.4-10.2) mg/dL Total Bilirubin (0.2-1.3) mg/dL AST (17-59) U/L ALT (4-49) U/L Alkaline Phosphatase (38-126) U/L Total Protein (6.3-8.2) g/dL Albumin (3.5-5.0) g/dL Lipase (23-300) U/L TSH 2.240 (0.465-4.680) mIU/L Urine Color Yellow Urine Appearance Clear (Clear) Urine pH 5.5 (5.0-8.0) Ur Specific [place] 1.025 (1.001-1.035) Urine Protein Trace H (Negative) Urine Glucose (UA) Negative (Negative) Urine Ketones Negative (Negative) Urine Blood Negative (Negative) Urine Nitrite Negative (Negative) Urine Bilirubin Negative (Negative) Urine Urobilinogen <2.0 (<2.0) mg/dL Ur Leukocyte Esterase Negative (Negative) Heterophile Antibody Negative (Negative) Disposition <Kimberlyn Valentino - Last Filed: 02/03/23 13:28> Is patient prescribed a controlled substance at d/c from ED?: No <Shaina Mcgill - Last Filed: 02/03/23 21:19> Clinical Impression: Fatigue, Vomiting, Weakness Disposition: HOME SELF-CARE Condition: Good Instructions (If sedation given, give patient instructions): Acute Nausea and Vomiting (ED) Additional Instructions: Take medication as directed. Please follow-up with your primary care provider in 1-2 days. Return to the emergency department if you experience new, concerning, or worsening symptoms. Prescriptions: Ondansetron Odt [Zofran Odt] 4 mg PO Q8HR PRN #10 tab PRN Reason: Nausea Referrals: Della Potts [Primary Care Provider] - 1-2 days
[2023-02-03] MEDS ORDERED: SODIUM CHLORIDE 0.9% 1,000 ML IV STA (15:18)
[2023-02-03] MEDS ORDERED: ONDANSETRON 4 MG/2 ML VIAL IVP STA (15:29)
[2023-02-03 15:34] LABS: Basophils % (A) 1 %; Eosinophils # (A) 0.2 k/uL (0-0.7); Eosinophils % (A) 4 %; HCT 42.8 % (39.0-53.0); HGB 14.4 gm/dL (13.0-17.5); Lymphocytes # (A) 2.1 k/uL (1.0-4.8); Lymphocytes % (A) 36 %; MCH 30.4 pg (25.0-35.0); MCHC 33.7 g/dL (31.0-37.0); MCV 90.1 fL (80.0-100.0); Mean Platelet Volume 7.5; Monocytes # (A) 0.4 k/uL (0-1.0); Monocytes % (A) 6 %; Neutrophils # (A) 3.1 k/uL (1.3-7.7); Neutrophils % (A) 53 %; Platelet Count 297 k/uL (150-450); RBC 4.75 m/uL (4.30-5.90); RDW 13.3 % (11.5-15.5); WBC 5.9 k/uL (3.8-10.6)
[2023-02-03 15:43] LABS: ALT 81 U/L (4-49); AST 41 U/L (17-59); African American GFR (CKD) >90 (>60 ml/min/1.73 sqM); Albumin 4.3 g/dL (3.5-5.0); Alkaline Phosphatase 121 U/L (38-126); Anion Gap 8 mmol/L; Blood Urea Nitrogen 15 mg/dL (9-20); Calcium 9.2 mg/dL (8.4-10.2); Carbon Dioxide 27 mmol/L (22-30); Chloride 105 mmol/L (98-107); Glucose 126 mg/dL (74-99); Lipase 43 U/L (23-300); Non-African American GFR(CKD) >90 (>60 ml/min/1.73 sqM); Potassium 4.6 mmol/L (3.5-5.1); Sodium 140 mmol/L (137-145); Total Bilirubin 0.3 mg/dL (0.2-1.3); Total Protein 7.2 g/dL (6.3-8.2)
--- NOTE | 2023-02-03 15:55 | XR ---
EXAMINATION TYPE: XR chest 2V DATE OF EXAM: 02/03/2023 COMPARISON: 07/20/2021 HISTORY: Chest pain TECHNIQUE: Frontal and lateral views of the chest are obtained. FINDINGS: There is no focal air space opacity. No evidence for pneumothorax. No pleural effusion. The cardiac silhouette size is within normal limits. The osseous structures are grossly intact. IMPRESSION: 1. No acute cardiopulmonary process.
[2023-02-03 17:52] LABS: Appearance,Urine Clear (Clear); Bilirubin,Urine Negative (Negative); Blood,Urine Negative (Negative); Color,Urine Yellow; Glucose,Urine (UA) Negative (Negative); Ketones,Urine Negative (Negative); Leukocyte Esterase,Urine Negative (Negative); Nitrite,Urine Negative (Negative); PH, Urine 5.5 (5.0-8.0); Protein,Urine Trace (Negative); Specific Gravity,Urine 1.025 (1.001-1.035); Urobilinogen,Urine <2.0 mg/dL (<2.0)
[2023-02-03 17:54] VITALS: BP 139/87; PULSE 81; RESP 18; TEMP 98.1
== END 2023-02-03 17:54 | disposition home or self-care (01) ==
LOC: EC 11:20
DX: R53.1 Weakness (principal); R53.83 Other fatigue; R11.10 Vomiting, unspecified; I10 Essential (primary) hypertension; Z86.59 Personal history of other mental and behavioral disorders; F17.200 Nicotine dependence, unspecified, uncomplicated; Z91.013 Allergy to seafood
CPT/HCPCS: 36415; 71046; 80053; 81003; 83605; 83690; 84443; 85025; 86308; 93005; 96360; 96361; 99284

== ENCOUNTER → 2023-09-09 | Outpatient (CLI) | payer OTHER ==
--- NOTE | 2023-09-09 13:20 | XR ---
EXAMINATION TYPE: XR chest 2V DATE OF EXAM: 09/09/2023 COMPARISON: 02/03/2023 TECHNIQUE: PA and lateral views submitted. HISTORY: Shortness of breath FINDINGS: The lungs are clear and there is no pneumothorax, pleural effusion, or focal pneumonia. Heart size normal and no overt failure. Osseous structures demonstrate hypertrophic and degenerative changes of the spine. Biapical pleural thickening. IMPRESSION: 1. No acute process.
== END | disposition home or self-care (01) ==
LOC: LABWHC1 12:36
PROVIDERS: ATTEND Student in an Organized Health Care Education/Training Program
DX: R06.02 Shortness of breath (principal)
CPT/HCPCS: 36415; 71046; 83880

== ENCOUNTER 2023-09-15 21:41 | Inpatient (IN) | payer MEDICAID, OTHER ==
[2023-09-15] MEDS ORDERED: OLANZapine 10 MG VIAL IM STA (23:58)
[2023-09-16 01:20] LABS: Amphetamine Screen,Urine Not Detected (NotDetected); Barbiturate Screen,Urine Not Detected (NotDetected); Benzodiazepines Screen,Urine Not Detected (NotDetected); Cocaine Screen,Urine Not Detected (NotDetected); Methadone Screen, Urine Not Detected (NotDetected); Opiate Screen,Urine Not Detected (NotDetected); Oxycodone Screen, Urine Not Detected (NotDetected); Phencyclidine Screen,Urine Not Detected (NotDetected); Tricyclic Antidepressant,Urine Not Detected (NotDetected); Urn Cannabinoid Scrn Not Detected (NotDetected)
--- NOTE | 2023-09-16 03:03 | ED ---
Psych HPI - General Source: patient Mode of arrival: ambulatory <Melissa High - Last Filed: 09/16/23 03:01> <Fausto Bey - Last Filed: 09/16/23 17:30> - General Chief Complaint: Psychiatric Symptoms Stated Complaint: Mental Health - History of Present Illness Initial Comments: 48-year-old male presents to the emergency department after he is petitioned by his mother. Patient is brought up here by her. She reports that the patient has been aggressive at home and she is afraid of him. He follows with [facility] and had his Abilify injection today. He has been uncooperative with her and threatening her. He did drink some alcohol today. When questioning the patient, he states that he lives in his parent's basement and he does not get along with his mom. He denies suicidal or homicidal ideations. Denies drug use. Mother does fill the condition of the patient (Melissa High) - Related Data Home Medications Medication Instructions Recorded Confirmed ARIPiprazole [Abilify Maintena] 300 mg PO Q28D 09/16/23 09/16/23 Furosemide [Lasix] 20 mg PO DAILY 09/16/23 09/16/23 Previous Rx's Medication Instructions Recorded Metoprolol Tartrate [Lopressor] 50 mg PO BID 30 Days tab 11/02/20 Allergies Allergy/AdvReac Type Severity Reaction Status Date / Time shellfish derived [Shellfish] AdvReac Hives/Angio Verified 09/16/23 11:24 edema Review of Systems ROS Other: All systems not noted in ROS Statement are negative. <Melissa High - Last Filed: 09/16/23 03:01> ROS Other: All systems not noted in ROS Statement are negative. <Fausto Bey - Last Filed: 09/16/23 17:30> ROS Statement: Those systems with pertinent positive or pertinent negative responses have been documented in the HPI. Past Medical History Past Medical History: Hypertension History of Any Multi-Drug Resistant Organisms: None Reported Past Surgical History: Hernia Repair Past Anesthesia/Blood Transfusion Reactions: No Reported Reaction Past Psychological History: ADD/ADHD, Anxiety, Depression Smoking Status: Heavy tobacco smoker Past Alcohol Use History: None Reported Past Drug Use History: None Reported <Melissa High - Last Filed: 09/16/23 03:01> General Exam Limitations: no limitations <Melissa High - Last Filed: 09/16/23 03:01> Course Vital Signs 09/15/23 21:43 Temperature 97.9 F Pulse Rate 84 Respiratory 16 Rate Blood Pressure 131/90 O2 Sat by Pulse 98 Oximetry Medical Decision Making <Melissa High - Last Filed: 09/16/23 03:01> <SoteroFausto - Last Filed: 09/16/23 17:30> - Medical Decision Making @ -Was pt. sent in by a medical professional or institution (, [facility], BIOMETRICS HEAD, urgent care, hospital, or jail...) When possible be specific @ -[No] Did you speak to anyone other than the patient for history (EMS, parent, family, police, friend...)? What history was obtained from this source @ -[No] Did you review nursing and triage notes (agree or disagree)? Why? @ -[I reviewed and agree with nursing and triage notes] Were old charts reviewed (outside hosp., previous admission, EMS record, old EKG, old radiological studies, urgent care reports/EKG's, jail records)? Report findings @ -[No old charts were reviewed] Differential Diagnosis (chest pain, altered mental status, abdominal pain women, abdominal pain men, vaginal bleeding, weakness, fever, dyspnea, syncope, headache, dizziness, GI bleed, back pain, seizure, CVA, palpatations, mental health, musculoskeletal)? @ -[not applicable] EKG interpreted by me (3pts min.). @ -[As above] X-rays interpreted by me (1pt min.). @ -[None done] CT interpreted by me (1pt min.). @ -[None done] U/S interpreted by me (1pt. min.). @ -[None done] What testing was considered but not performed or refused? (CT, X-rays, U/S, labs)? Why? @ -[None] What meds were considered but not given or refused? Why? @ -[None] Did you discuss the management of the patient with other professionals (professionals i.e. , PARESH, BIOMETRICS HEAD, lab, RT, psych nurse, social service assistant, property clerk, teacher, minesweeping officer, adult protective caseworker)? Give summary @ -[No] Was smoking cessation discussed for >3mins.? @ -[No] Was critical care preformed (if so, how long)? @ -[No] Were there social determinants of health that impacted care today? How? (Homelessness, low income, unemployed, alcoholism, drug addiction, transportation, low edu. Level, literacy, decrease access to med. care, halfway, rehab)? @ -[No] Was there de-escalation of care discussed even if they declined (Discuss DNR or withdrawal of care, Hospice)? DNR status @ -[No] What co-morbidities impacted this encounter? (DM, HTN, Smoking, COPD, CAD, Cancer, CVA, ARF, Chemo, Hep., AIDS, mental health diagnosis, sleep apnea, morbid obesity)? @ -[None] Was patient admitted / discharged? Hospital course, mention meds given and route, prescriptions, significant lab abnormalities, going to OR and other pertinent info. @ -Upon arrival patient was placed into room 12. Throat history and physical exam was performed. Patient is agitated and therefore requires 10 mg of IM Zyp rexa. He is intoxicated and sober at 2 AM. EPS is gone at this time and therefore he will require evaluation in the morning. She will be signed out to oncoming physician Undiagnosed new problem with uncertain prognosis? @ -[No] Drug Therapy requiring intensive monitoring for toxicity (Heparin, Nitro, Insulin, Cardizem)? @ -[No] Were any procedures done? @ -[No] Diagnosis/symptom? @ -[default] Acute, or Chronic, or Acute on Chronic? @ -[default] Uncomplicated (without systemic symptoms) or Complicated (systemic symptoms)? @ -[default] Side effects of treatment? @ -[No] Exacerbation, Progression, or Severe Exacerbation? @ -[No] Poses a threat to life or bodily function? How? (Chest pain, USA, [place], pneumonia, PE, COPD, DKA, ARF, appy, cholecystitis, CVA, Diverticulitis, Homicidal, Suicidal, threat to staff... and all critical care pts) @ -[No] (Melissa High) Patient evaluated by EPS. Signed out to me pending EPS evaluation. Patient does meet inpatient criteria for psychiatric admission. Clinical certificate completed by myself. Petition already completed. Patient will be admitted. Diagnosis/symptom? @ -Encounter for psychiatric evaluation, acute psychosis, aggression Acute, or Chronic, or Acute on Chronic? @ -Acute Uncomplicated (without systemic symptoms) or Complicated (systemic symptoms)? @ -Complicated Side effects of treatment? @ -None Exacerbation, Progression, or Severe Exacerbation] @ -No Poses a threat to life or bodily function? @ -Potentially, yes (Fausto Bey) - Lab Data Lab Results 09/15/23 09/16/23 Range/Units 23:57 15:57 Urine Opiates Screen Not Detected (NotDetected) Ur Oxycodone Screen Not Detected (NotDetected) Urine Methadone Screen Not Detected (NotDetected) Ur Barbiturates Screen Not Detected (NotDetected) U Tricyclic Antidepress Not Detected (NotDetected) Ur Phencyclidine Scrn Not Detected (NotDetected) Ur Amphetamines Screen Not Detected (NotDetected) U Methamphetamines Scrn Not Detected (NotDetected) U Benzodiazepines Scrn Not Detected (NotDetected) Urine Cocaine Screen Not Detected (NotDetected) U Marijuana (THC) Screen Not Detected (NotDetected) SARS-CoV-2 (PCR) Not Detected (Not Detectd) Disposition <Melissa High - Last Filed: 09/16/23 03:01> Time of Disposition: 17:29 <Fausto Bey - Last Filed: 09/16/23 17:30> Clinical Impression: Encounter for psychiatric assessment, Aggression, Acute psychosis Disposition: TRANSFER TO PSYCH HOSP/UNIT Condition: Stable Referrals: Della Potts [Primary Care Provider] - 1-2 days
[2023-09-16] MEDS ORDERED: ACETAMINOPHEN TAB 325 MG TAB PO PRN (18:44)
[2023-09-16] MEDS ORDERED: HALOPERIDOL LACTATE 5 MG/ML 1 ML VIAL IM PRN (18:44)
[2023-09-16] MEDS ORDERED: LORazepam 2 MG/ML INJ IM PRN (18:44)
[2023-09-16] MEDS ORDERED: MAGNESIUM HYDROXIDE 2,400 MG/30 ML CUP PO PRN (18:44)
[2023-09-16] MEDS ORDERED: IBUPROFEN 600 MG TAB PO PRN (18:44)
[2023-09-16] MEDS ORDERED: LORazepam 1 MG TAB PO PRN (18:44)
[2023-09-16] MEDS ORDERED: MAG HYDROX/AL HYDROX/SIMETH 30 ML CUP PO PRN (18:44)
[2023-09-16] MEDS ORDERED: haloperidoL 5 MG TAB PO PRN (18:44)
[2023-09-16] MEDS: FUROSEMIDE 20 MG TAB PO SCH (21:00)
[2023-09-16] MEDS: METOPROLOL TARTRATE 50 MG TAB PO SCH (21:01)
[2023-09-16] MEDS ORDERED: SODIUM CHLORIDE 0.65% NASAL SPRAY 44 ML BTL NASAL PRN (21:12)
[2023-09-16] MEDS ORDERED: diphenhydrAMINE 25 MG CAP PO PRN (21:13)
[2023-09-16] MEDS ORDERED: cloNIDine HCL 0.2 MG TAB PO PRN (21:13)
--- NOTE | 2023-09-16 21:58 | XR ---
EXAMINATION TYPE: XR chest 1V portable DATE OF EXAM: 09/16/2023 9:55 PM CLINICAL INDICATION:Male, 48 years old with history of congestion; COMPARISON: Chest radiographs from 09/09/2023 TECHNIQUE: XR chest 1V portable Frontal view of the chest. FINDINGS: Lungs/Pleura: There is no evidence of pleural effusion, focal consolidation, or pneumothorax. Pulmonary vascularity: Unremarkable. Heart/mediastinum: Cardiomediastinal silhouette is unremarkable. Musculoskeletal: No acute osseous pathology. IMPRESSION: No acute cardiopulmonary disease/process.
--- NOTE | 2023-09-17 05:19 | P.MDCNMH ---
History of Present Illness H&P Date: 09/16/23 Chief Complaint: Medical evaluation 48-year-old male coming in for psych evaluation after being petitioned by his mother as he was manifesting aggressive behavior at home he is being uncooperative with her treatments Patient does report nasal congestion and congestion in his chest with some coughing denies any fevers or chills he feels some fullness in his right ear denies any changes in bowel or urinary habits denies any abdominal pain denies nausea vomiting Patient denies any illicit drugs heavy alcohol or smoking review of systems Pertinent positives as noted in HPI. All other systems were reviewed and are negative on exam Autoscope was not available on the unit during my exam when requested one RN indicated that both are scabs on the floor or broken Constitutional: No acute distress, Eyes: Anicteric sclerae, moist conjunctiva, Pupils equal round reactive to light ENMT: NC/AT Oropharynx clear, no erythema, or exudates Lungs: Clear to auscultation Clear to percussion Normal respiratory effort, no accessory muscle use Cardiovascular: Heart regular in rate and rhythm, No murmurs, gallops, or rubs No peripheral edema Abdominal: Soft Nontender, no guarding, rebound or rigidity Abdomen moving with respiration Normoactive bowel sounds Extremities: No digital cyanosis No clubbing Pedal pulses intact and symmetrical Radial pulses intact and symmetrical No calf tenderness Psychiatric: Alert and oriented to person, place and time Neuro Muscles Strength 5/5 in all 4 extremities Sensation to light touch grossly present throughout Cranial nerves II-XII grossly intact Past Medical History Past Medical History: Hypertension History of Any Multi-Drug Resistant Organisms: None Reported Past Surgical History: Hernia Repair Past Anesthesia/Blood Transfusion Reactions: No Reported Reaction Past Psychological History: ADD/ADHD, Anxiety, Depression Smoking Status: Never smoker Past Alcohol Use History: None Reported Past Drug Use History: None Reported Additional Drug Use History / Comment(s): History of cocaine and ETOH use. States he hasn't been drinking ETOH except yesterday r/t family issues. States he quit drinking approx. 10 1/2 mos. ago and hasn't used cocaine for approx. 1- 1/2 yrs but per [facility] records he was positive in 2022 for cocaine. Medications and Allergies Home Medications Medication Instructions Recorded Confirmed Type Metoprolol Tartrate [Lopressor] 50 mg PO BID 30 Days tab 11/02/20 09/16/23 Rx Furosemide [Lasix] 20 mg PO DAILY 09/16/23 09/16/23 History ARIPiprazole [Abilify Maintena] 300 mg PO Q28D #1 each 09/19/23 Rx Albuterol Inhaler [Ventolin Hfa 2 puff INHALATION RT-QID PRN 30 09/19/23 Rx Inhaler] Days #1 each Carbamide Peroxide [Debrox Otic] 5 drops BOTH EARS BID PRN 10 Days 09/19/23 Rx #1 ml Citalopram Hydrobromide [CeleXA] 20 mg PO HS 30 Days #30 tab 09/19/23 Rx Melatonin 10 mg PO HS 30 Days #60 tab 09/19/23 Rx Nicotine 14Mg/24Hr Patch [Habitrol] 1 patch TRANSDERM DAILY 14 Days 09/19/23 Rx #14 patch Allergies Allergy/AdvReac Type Severity Reaction Status Date / Time shellfish derived [Shellfish] AdvReac Hives/Angio Verified 09/16/23 11:24 edema Physical Exam Vitals: Vital Signs Temp Pulse Pulse Resp BP BP Pulse Ox 09/16/23 22:23 107 H 142/90 09/16/23 19:35 97.7 F 103 H 20 177/113 95 09/16/23 19:03 84 18 127/81 96 09/16/23 12:30 84 18 134/85 97 Intake and Output 09/16/23 09/16/23 09/17/23 14:59 22:59 06:59 Other: Weight 137.438 kg Cranial Nerve Examination - Cranial Nerves Cranial Nerve II- Optic: Intact Cranial Nerve III- Oculomotor: Intact Cranial Nerve IV- Trochlear: Intact Cranial Nerve V- Trigeminal: Intact Cranial Nerve - Abducens: Intact Cranial Nerve VII- Facial: Intact Cranial Nerve VIII- Auditory: Intact Cranial Nerve IX- Glossopharyngeal: Intact Cranial Nerve X- Vagus: Intact Cranial Nerve XI- Accessory: Intact Cranial Nerve XII- Hypoglossal: Intact Results CBC & Chem 7: 09/17/23 09:51 09/17/23 09:51 Assessment and Plan Assessment: Aggressive behavior Management per psych Cold symptoms Acute respiratory viral panel negative for RSV, COVID, influenza Chest x-ray no acute pathology Symptomatic control of nasal congestion Follow-up blood work Thank you for this consultation
[2023-09-17 07:46] VITALS: RESP 16
[2023-09-17] MEDS: METOPROLOL TARTRATE 50 MG TAB PO SCH ×2 (09:03→21:40)
[2023-09-17] MEDS: FUROSEMIDE 20 MG TAB PO SCH (09:03)
[2023-09-17] MEDS: NICOTINE 14MG/24HR PATCH TRANSDERM SCH (09:07)
[2023-09-17 10:39] LABS: Basophils % (A) 1 %; Eosinophils # (A) 0.2 k/uL (0-0.7); Eosinophils % (A) 4 %; HCT 45.1 % (39.0-53.0); Lymphocytes # (A) 1.6 k/uL (1.0-4.8); Lymphocytes % (A) 29 %; MCH 31.8 pg (25.0-35.0); MCHC 35.6 g/dL (31.0-37.0); MCV 89.2 fL (80.0-100.0); Mean Platelet Volume 8.2; Monocytes # (A) 0.3 k/uL (0-1.0); Monocytes % (A) 6 %; Neutrophils # (A) 3.3 k/uL (1.3-7.7); Neutrophils % (A) 59 %; Platelet Count 179 k/uL (150-450); RBC 5.05 m/uL (4.30-5.90); WBC 5.6 k/uL (3.8-10.6)
[2023-09-17 10:40] LABS: ALT 31 U/L (4-49); AST 30 U/L (17-59); African American GFR (CKD) >90 (>60 ml/min/1.73 sqM); Albumin 4.6 g/dL (3.5-5.0); Alkaline Phosphatase 76 U/L (38-126); Anion Gap 11 mmol/L; Bilirubin, Delta 0.3 mg/dL (0.0-0.2); Bilirubin,Unconjugated 0.5 mg/dL (0.0-1.1); Blood Urea Nitrogen 19 mg/dL (9-20); Calcium 9.9 mg/dL (8.4-10.2); Carbon Dioxide 23 mmol/L (22-30); Chloride 103 mmol/L (98-107); Glucose 121 mg/dL (74-99); Non-African American GFR(CKD) >90 (>60 ml/min/1.73 sqM); Sodium 137 mmol/L (137-145); Total Bilirubin 0.8 mg/dL (0.2-1.3); Total Protein 7.8 g/dL (6.3-8.2)
--- NOTE | 2023-09-17 13:59 | P.HP ---
Psychiatric H&P - . H&P Date: 09/17/23 History & Physical: Allergies Allergy/AdvReac Type Severity Reaction Status Date / Time shellfish derived shellfish AdvReac Hives/Angio Verified 09/16/23 11:24 edema Vital Signs Temp 97.7 F 09/17/23 06:54 Pulse 80 09/17/23 06:54 Resp 16 09/17/23 06:54 BP 136/82 09/17/23 06:54 Pulse Ox 95 09/16/23 19:35 FiO2 Intake & Output 09/16/23 09/17/23 09/17/23 18:59 06:59 18:59 Weight 137.438 kg Laboratory Last Values WBC 5.6 k/uL (3.8-10.6) 09/17/23 09:51 RBC 5.05 m/uL (4.30-5.90) 09/17/23 09:51 Hgb 16.0 gm/dL (13.0-17.5) 09/17/23 09:51 Hct 45.1 % (39.0-53.0) 09/17/23 09:51 MCV 89.2 fL (80.0-100.0) 09/17/23 09:51 MCH 31.8 pg (25.0-35.0) 09/17/23 09:51 MCHC 35.6 g/dL (31.0-37.0) 09/17/23 09:51 RDW 13.0 % (11.5-15.5) 09/17/23 09:51 Plt Count 179 k/uL (150-450) 09/17/23 09:51 MPV 8.2 09/17/23 09:51 Neutrophils % 59 % 09/17/23 09:51 Lymphocytes % 29 % 09/17/23 09:51 Monocytes % 6 % 09/17/23 09:51 Eosinophils % 4 % 09/17/23 09:51 Basophils % 1 % 09/17/23 09:51 Neutrophils # 3.3 k/uL (1.3-7.7) 09/17/23 09:51 Lymphocytes # 1.6 k/uL (1.0-4.8) 09/17/23 09:51 Monocytes # 0.3 k/uL (0-1.0) 09/17/23 09:51 Eosinophils # 0.2 k/uL (0-0.7) 09/17/23 09:51 Basophils # 0.0 k/uL (0-0.2) 09/17/23 09:51 Sodium 137 mmol/L (137-145) 09/17/23 09:51 Potassium 5.0 mmol/L (3.5-5.1) 09/17/23 09:51 Chloride 103 mmol/L (98-107) 09/17/23 09:51 Carbon Dioxide 23 mmol/L (22-30) 09/17/23 09:51 Anion Gap 11 mmol/L 09/17/23 09:51 BUN 19 mg/dL (9-20) 09/17/23 09:51 Creatinine 0.86 mg/dL (0.66-1.25) 09/17/23 09:51 Est GFR (CKD-EPI)AfAm >90 (>60 ml/min/1.73 sqM) 09/17/23 09:51 Est GFR (CKD-EPI)NonAf >90 (>60 ml/min/1.73 sqM) 09/17/23 09:51 Glucose 121 mg/dL (74-99) H 09/17/23 09:51 Calcium 9.9 mg/dL (8.4-10.2) 09/17/23 09:51 Total Bilirubin 0.8 mg/dL (0.2-1.3) 09/17/23 09:51 Conjugated Bilirubin 0.0 mg/dL (0.0-0.3) 09/17/23 09:51 Unconjugated Bilirubin 0.5 mg/dL (0.0-1.1) 09/17/23 09:51 Delta Bilirubin 0.3 mg/dL (0.0-0.2) H 09/17/23 09:51 AST 30 U/L (17-59) 09/17/23 09:51 ALT 31 U/L (4-49) 09/17/23 09:51 Alkaline Phosphatase 76 U/L (38-126) 09/17/23 09:51 Total Protein 7.8 g/dL (6.3-8.2) 09/17/23 09:51 Albumin 4.6 g/dL (3.5-5.0) 09/17/23 09:51 TSH 2.360 mIU/L (0.465-4.680) 09/17/23 09:51 Urine Opiates Screen Not Detected (NotDetected) 09/15/23 23:57 Ur Oxycodone Screen Not Detected (NotDetected) 09/15/23 23:57 Urine Methadone Screen Not Detected (NotDetected) 09/15/23 23:57 Ur Barbiturates Screen Not Detected (NotDetected) 09/15/23 23:57 U Tricyclic Antidepress Not Detected (NotDetected) 09/15/23 23:57 Ur Phencyclidine Scrn Not Detected (NotDetected) 09/15/23 23:57 Ur Amphetamines Screen Not Detected (NotDetected) 09/15/23 23:57 U Methamphetamines Scrn Not Detected (NotDetected) 09/15/23 23:57 U Benzodiazepines Scrn Not Detected (NotDetected) 09/15/23 23:57 Urine Cocaine Screen Not Detected (NotDetected) 09/15/23 23:57 U Marijuana (THC) Screen Not Detected (NotDetected) 09/15/23 23:57 Influenza Type A (PCR) Not Detected (Not Detectd) 09/16/23 21:40 Influenza Type B (PCR) Not Detected (Not Detectd) 09/16/23 21:40 RSV (PCR) Not Detected (Not Detectd) 09/16/23 21:40 SARS-CoV-2 (PCR) Not Detected (Not Detectd) 09/16/23 21:40 09/17/23 13:19 IDENTIFYING DATA: Patient is a single, employed, 48-year-old male who presented to the hospital on petition by mother, currently lives with his mother in the basement. HPI: Patient presented to the hospital yesterday on petition by patient's mother. According to petition states that patient has been aggressive, angry and [id number] with his emotions, in and out of treatment. Patient apparently has a history of bipolar disorder and ADHD according to petition. Patient last received a Abilify Maintena injection 300 mg IM yesterday at [facility]. His last psychiatric hospitalization on the mental health unit was in July 2022. Patient was admitted involuntarily to the mental health unit, seen today and agreeable to speak to newswriter. Patient claims that he has been getting into arguments with his mother. He states that he is feeling a bit irritable especially around her. Claims that he was having some shortness of breath and does not know what it is from. States that he has been sleeping on and off during the day. Claims that he does follow-up with Dr. Muñoz at [facility]. States that he just got the Abilify injection yesterday. States that he wants to have his own place and is working towards. 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 States that his father was a gambler and left him and financial troubles. States that his parents did go through a divorce. He claims that he is having some mild depression at times, also endorsing some anxiety. States that his ears are "plugged". States that he has been on and off his psychiatric medications not taking them consistently. States that his sleep has been on and off, appetite has been fair, he was fairly directable and reasonable. He claims that he is okay with taking his medications and signing voluntary at this time. At this time he is denying any suicidal homicidal ideations intent or plan. Denying any auditory or visual hallucinations. He claims that he does chew nicotine products however does not use any other recreational drugs. PAST PSYCHIATRIC HISTORY: Patient has been previously diagnosed with bipolar disorder, history y of cocaine use disorder, alcohol abuse. The patient's home medications include Abilify maintena 300 mg IM monthly, last dose received on 09/15 at [facility], citalopram, and trazodone. Was last hospitalized on our psychiatric unit in July 2022. He is open with [facility], when he follows up with his psychiatrist Dr. Rico. He denies any prior attempts at suicide. PMH: Past Medical History: Hypertension History of Any Multi-Drug Resistant Organisms: None Reported Past Surgical History: Hernia Repair Past Anesthesia/Blood Transfusion Reactions: No Reported Reaction Past Psychological History: ADD/ADHD, Anxiety, Depression Smoking Status: Light tobacco smoker Past Alcohol Use History: Occasional Past Drug Use History: Cocaine, Marijuana ALLERGIES: NO KNOWN DRUG ALLERGIES CHEMICAL DEPENDENCY HISTORY: As per HPI FAMILY PSYCHIATRIC/SUBSTANCE USE HISTORY: He reports that his family has a history of depression. SOCIAL HISTORY: Patient was born and raised in [place]. He has been living with his mother and stepfather. His biological mother and father are . His younger brother lives in [place]. He is single, and has no children. He is currently employed, works doing concrete. MENTAL STATUS EXAM: General Appearance: Patient appears to be well-built, stated age is alert, directable, and attempts to cooperate. Patient appears to have fair hygiene and grooming. Behavior: Patient is seated without any agitated behavior. Normal psychomotor activity. Eye contact is appropriate. Speech: Patient's speech is fluent and nonpressured. Loud at times. Mood/Affect: Patient reports their mood is "a bit irritable," affect is congruent, bright, and friendly Suicidality/Homicidality: Patient vehemently denies any suicidal or homicidal ideation Perceptions: Patient denies any visual hallucinations and denies any auditory hallucinations Though content/process: There is no evidence of any delusional thought content and thought process is linear and goal-directed. Memory and concentration: AOX3, grossly intact for the purposes of this session. Can spell "WORLD" backwards Judgment and insight: Fair STRENGTHS/WEAKNESSES: Strength is that the patient is gainfully employed. Weakness is that patient is not fully compliant with his medications INTELLECT: average IMPRESSIONS: Bipolar disorder unspecified History of cocaine use Nonadherence with treatment Nicotine dependence PLAN: -Patient is admitted under voluntary status to MHU for stabilization of psych iatric symptoms and safety. Patient has signed adult voluntary form and medication consent and is placed in patient's chart. -Medications : Celexa 20 mg nightly for mood/anxiety, trazodone 50 mg nightly for insomnia/mood, patient received Abilify Maintena 300 mg IM on 09/15, next dose will be due on 10/14 -Ativan and Haldol PRN for agitation/aggression -Patient was informed of the risks, benefits and side effects of the medication and patient verbally consented to taking the medications. Patient signed med consent form and was placed in chart. -Internal Medicine consult to perform medical evaluation and physical. -NRT -nicotine patch -SW on board for discharge planning. Encourage patient to participate in groups to work on coping skills. 09/17/23 13:57
[2023-09-17] MEDS: CARBAMIDE PEROXIDE 6.5% DROPS 15 ML BTL BOTH EARS SCH ×2 (15:06→21:50)
[2023-09-17] MEDS: ALBUTEROL INHALER 60 PUFF/8 GM INHALER (MHU) INHALATION PRN (17:42)
[2023-09-17 17:51] LABS: Chol/HDL Ratio 5.23 Ratio
[2023-09-17] MEDS ORDERED: traZODone HCL 50 MG TAB PO SCH (21:00)
[2023-09-17] MEDS: CITALOPRAM HYDROBROMIDE 20 MG TAB PO SCH (21:40)
[2023-09-18] MEDS: CARBAMIDE PEROXIDE 6.5% DROPS 15 ML BTL BOTH EARS SCH ×2 (08:40→20:50)
[2023-09-18] MEDS: METOPROLOL TARTRATE 50 MG TAB PO SCH ×2 (08:40→20:49)
[2023-09-18] MEDS: FUROSEMIDE 20 MG TAB PO SCH (08:40)
[2023-09-18] MEDS: NICOTINE 14MG/24HR PATCH TRANSDERM SCH (08:40)
--- NOTE | 2023-09-18 12:09 | P.PN ---
Progress Note - Text Progress Note Date: 09/18/23 Interval history: patient was seen today for psychiatric follow up. he states that he is able to hear a bit better out of his ears. states that he feels the trazodone is too strong for him. he states that he was hoping for dishcrage tomorrow. he was requesting to try melatonin at night for tonihg. states that he was visited by his mother last night and states that it went well. He is claims that he will try and go to group today and p[articipate in meliu. he is currently denying any issues with his appetite. and denies any AH or VH. He is denying any SI or HI. MENTAL STATUS EXAM: General Appearance: Patient appears to be well-built, stated age is alert, directable, and attempts to cooperate. Patient appears to have fair hygiene and grooming. Behavior: Patient is seated without any agitated behavior. Normal psychomotor activity. Eye contact is appropriate. Speech: Patient's speech is fluent and nonpressured. Mood/Affect: Patient reports their mood is "better" affect is congruent, bright, and friendly Suicidality/Homicidality: Patient denies any suicidal or homicidal ideation. Perceptions: Patient denies any visual hallucinations and denies any auditory hallucinations Though content/process: There is no evidence of any delusional thought content and thought process is linear and goal-directed Memory and concentration: AOX3, grossly intact for the purposes of this session Judgment and insight: Fair IMPRESSIONS: Bipolar disorder unspecified History of cocaine use Nonadherence with treatment Nicotine dependence PLAN: -Patient is admitted under voluntary status to MHU for stabilization of psychiatric symptoms and safety. Patient has signed adult voluntary form and medication consent and is placed in patient's chart. -Medications : Celexa 20 mg nightly for mood/anxiety, d/c trazodone replace with melatonin 5 mg qhs for sleep, patient received Abilify Maintena 300 mg IM on 09/15, next dose will be due on 10/14 -Ativan and Haldol PRN for agitation/aggression -NRT -nicotine patch -SW on board for discharge planning. Encourage patient to participate in groups to work on coping skills. 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
[2023-09-18] MEDS: CITALOPRAM HYDROBROMIDE 20 MG TAB PO SCH (20:49)
[2023-09-18] MEDS: ALBUTEROL INHALER 60 PUFF/8 GM INHALER (MHU) INHALATION PRN (20:51)
[2023-09-18] MEDS ORDERED: MELATONIN 5 MG TABLET PO SCH (21:00)
[2023-09-19 07:22] VITALS: TEMP 98
[2023-09-19] MEDS: FUROSEMIDE 20 MG TAB PO SCH (09:00)
[2023-09-19] MEDS: METOPROLOL TARTRATE 50 MG TAB PO SCH (09:00)
[2023-09-19] MEDS: CARBAMIDE PEROXIDE 6.5% DROPS 15 ML BTL BOTH EARS SCH (09:00)
[2023-09-19] MEDS: NICOTINE 14MG/24HR PATCH TRANSDERM SCH (09:01)
[2023-09-19 10:01] VITALS: BP 156/87; PULSE 90
--- NOTE | 2023-09-19 10:31 | P.DS ---
Providers Date of admission: 09/16/23 18:38 Expected date of discharge: 09/19/23 Attending physician: Kevin Reyna MD Consults: 09/16/23 18:44 Consult Physician Routine Consulting Provider: [place] Physician Consult Reason/Comments: H & P MEDICAL MEDICATION/MANAGEMENT Do you want consulting provider notified?: Yes Primary care physician: Della Potts - Discharge Diagnosis(es) (1) Bipolar disorder, unspecified Current Visit: Yes Status: Acute Priority: High (2) History of cocaine abuse Current Visit: Yes Status: Acute Priority: Medium (3) History of nonadherence to medical treatment Current Visit: Yes Status: Acute Priority: Medium (4) Nicotine dependence Current Visit: Yes Status: Acute Priority: Low Hospital Course: Admission HPI: Admission note was completed by instructional writer "Patient is a single, employed, 48-year-old male who presented to the hospital on petition by mother, currently lives with his mother in the basement. Patient presented to the hospital yesterday on petition by patient's mother. According to petition states that patient has been aggressive, angry and [id number] with his emotions, in and out of treatment. Patient apparently has a history of bipolar disorder and ADHD according to petition. Patient last received a Abilify Maintena injection 300 mg IM yesterday at [facility]. His last psychiatric hospitalization on the mental health unit was in July 2022. Patient was admitted involuntarily to the mental health unit, seen today and agreeable to speak to instructional writer. Patient claims that he has been getting into arguments with his mother. He states that he is feeling a bit irritable especially around her. Claims that he was having some shortness of breath and does not know what it is from. States that he has been sleeping on and off during the day. Claims that he does follow-up with Dr. Muñoz at [facility]. States that he just got the Abilify injection yesterday. States that he wants to have his own place and is working towards. 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 States that his father was a gambler and left him and financial troubles. States that his parents did go through a divorce. He claims that he is having some mild depression at times, also endorsing some anxiety. States that his ears are "plugged". States that he has been on and off his psychiatric medications not taking them consistently. States that his sleep has been on and off, appetite has been fair, he was fairly directable and reasonable. He claims that he is okay with taking his medications and signing voluntary at this time. At this time he is denying any suicidal homicidal ideations intent or plan. Denying any auditory or visual hallucinations. He claims that he does chew nicotine products however does not use any other recreational drugs. " Hospital course: Upon admission to the unit patient was directable and agreeable to commence treatment and signed adult voluntary form. Patient got along well with other patients on the unit and followed unit protocol. Patient was compliant with the medications and denied any side effects throughout hospital course. Patient was started on Celexa 20 mg nightly for mood/anxiety, melatonin nightly for sleep, patient was given Abilify Maintenna 300 mg IM at [facility] on 09/15, next dose will be due q. monthly on 10/14. Patient spoke of his stressors and engaged in therapy both group and individual. Patient was also seen by medical team for history and physical exam. Throughout the course of the hospitalization patient gradually improved with regards to mood, anxiety, irritability/agitation, sleep and became more future oriented with improved insight and judgment. On the day of discharge patient denied any suicidal or homicidal ideations intent or plan denied any auditory or visual hallucinations. Patient endorsed wanting to live for their health and family. The patient denied any access to guns or weapons. Patient denied any paranoia and did not endorse any delusions. Patient does have a significant history of substance abuse and was counseled on abstaining from all substances including alcohol and marijuana. Patient elected to do outpatient substance use treatment program through their outpatient provider.. Patient was also counseled on the medications and need for regular compliance and was encouraged to follow-up with their outpatient appointment for mental health and also for primary care. Prior to discharge a family meeting will be arranged by social service worker to answer any questions and ensure safety upon discharge incuding making sure that guns/weapons are either removed from the home or locked away. Patient will be discharged back to his mother's house, he will be following up with [facility]. Mental status exam: General Appearance: Patient appears to be well-built, stated age is alert, pleasant, and cooperative. Patient is in no acute distress and has improved hygiene and grooming Behavior: Patient is calmly seated without any agitated behavior. Speech: Patient's speech is fluent and nonpressured. Mood/Affect: Patient reports their mood is "better", affect is congruent and euthymic. Suicidality/Homicidality: Patient denies having any suicidal or homicidal ideation intent or plan. Perceptions: Patient denies any auditory or visual hallucinations. Though content/process: There is no evidence of any delusional thought content and thought process is linear and goal-directed. More future oriented Memory and concentration: AOX3, grossly intact for the purposes of this session. Can spell "WORLD" backwards correctly. Judgment and insight: improved with guarded prognosis Impression: Bipolar disorder unspecified History of cocaine abuse History of nonadherence with treatment Nicotine dependence Plan: -Continue with discharge today as patient has improved and stabilized psychiatrically and is not currently an imminent threat to themself and/or others. Patient will remain at chronically elevated risk for harm to self and/or others due to their impulsivity and history of substance abuse. -Continue medications: Celexa 20 mg nightly for mood/anxiety, melatonin 10 mg nightly for sleep, Abilify Maintena was given on 09/15 300 mg IM, next dose will be due on 10/14. -Patient was counseled on the need for medication compliance and appropriate follow-up at mental health and also primary care for medical issues. Patient verbalized understanding and agreed. -Social work to arrange for and conduct family meeting to ensure safety upon discharge and answer any questions/concerns and also to ensure safe home environment that guns/weapons are either removed from the home or locked away. Social work also to arrange for patients follow up appointments with [facility] for psychiatric care along with follow up with primary care provider. -Patient counseled on abstaining from recreational drugs and marijuana and alcohol. Was informed/educated on the adverse effects on their physical and mental health. Patient verbally agreed and understood. Patient was offered substance abuse treatment however declined at this time. -Patient was instructed to return to the hospital or seek immediate medical care if their psychiatric or medical symptoms do worsen or reoccur. Allergies Allergy/AdvReac Type Severity Reaction Status Date / Time shellfish derived [Shellfish] AdvReac Hives/Angio Verified 09/16/23 11:24 edema Laboratory Results WBC 5.6 k/uL (3.8-10.6) 09/17/23 09:51 RBC 5.05 m/uL (4.30-5.90) 09/17/23 09:51 Hgb 16.0 gm/dL (13.0-17.5) 09/17/23 09:51 Hct 45.1 % (39.0-53.0) 09/17/23 09:51 MCV 89.2 fL (80.0-100.0) 09/17/23 09:51 MCH 31.8 pg (25.0-35.0) 09/17/23 09:51 MCHC 35.6 g/dL (31.0-37.0) 09/17/23 09:51 RDW 13.0 % (11.5-15.5) 09/17/23 09:51 Plt Count 179 k/uL (150-450) 09/17/23 09:51 MPV 8.2 09/17/23 09:51 Neutrophils % 59 % 09/17/23 09:51 Lymphocytes % 29 % 09/17/23 09:51 Monocytes % 6 % 09/17/23 09:51 Eosinophils % 4 % 09/17/23 09:51 Basophils % 1 % 09/17/23 09:51 Neutrophils # 3.3 k/uL (1.3-7.7) 09/17/23 09:51 Lymphocytes # 1.6 k/uL (1.0-4.8) 09/17/23 09:51 Monocytes # 0.3 k/uL (0-1.0) 09/17/23 09:51 Eosinophils # 0.2 k/uL (0-0.7) 09/17/23 09:51 Basophils # 0.0 k/uL (0-0.2) 09/17/23 09:51 Sodium 137 mmol/L (137-145) 09/17/23 09:51 Potassium 5.0 mmol/L (3.5-5.1) 09/17/23 09:51 Chloride 103 mmol/L (98-107) 09/17/23 09:51 Carbon Dioxide 23 mmol/L (22-30) 09/17/23 09:51 Anion Gap 11 mmol/L 09/17/23 09:51 BUN 19 mg/dL (9-20) 09/17/23 09:51 Creatinine 0.86 mg/dL (0.66-1.25) 09/17/23 09:51 Est GFR (CKD-EPI)AfAm >90 (>60 ml/min/1.73 sqM) 09/17/23 09:51 Est GFR (CKD-EPI)NonAf >90 (>60 ml/min/1.73 sqM) 09/17/23 09:51 Glucose 121 mg/dL (74-99) H 09/17/23 09:[address] Glu mg/dL 134 mg/dL 09/17/23 09:51 Hemoglobin A1c 6.3 % (<=6.0) H 09/17/23 09:51 Calcium 9.9 mg/dL (8.4-10.2) 09/17/23 09:51 Total Bilirubin 0.8 mg/dL (0.2-1.3) 09/17/23 09:51 Conjugated Bilirubin 0.0 mg/dL (0.0-0.3) 09/17/23 09:51 Unconjugated Bilirubin 0.5 mg/dL (0.0-1.1) 09/17/23 09:51 Delta Bilirubin 0.3 mg/dL (0.0-0.2) H 09/17/23 09:51 AST 30 U/L (17-59) 09/17/23 09:51 ALT 31 U/L (4-49) 09/17/23 09:51 Alkaline Phosphatase 76 U/L (38-126) 09/17/23 09:51 Total Protein 7.8 g/dL (6.3-8.2) 09/17/23 09:51 Albumin 4.6 g/dL (3.5-5.0) 09/17/23 09:51 Triglycerides 418.00 mg/dL (0.00-149.00) H 09/17/23 09:51 Cholesterol 246.00 mg/dL (0.00-200.00) H 09/17/23 09:51 LDL Cholesterol Direct 117.00 mg/dL (0.00-129.00) 09/17/23 09:51 LDL Cholesterol, Calc mg/dL 09/17/23 09:51 VLDL Cholesterol, Calc 83.60 mg/dL (5.00-40.00) H 09/17/23 09:51 HDL Cholesterol 47.00 mg/dL (40.00-60.00) 09/17/23 09:51 Cholesterol/HDL Ratio 5.23 Ratio 09/17/23 09:51 TSH 2.360 mIU/L (0.465-4.680) 09/17/23 09:51 Urine Opiates Screen Not Detected (NotDetected) 09/15/23 23:57 Ur Oxycodone Screen Not Detected (NotDetected) 09/15/23 23:57 Urine Methadone Screen Not Detected (NotDetected) 09/15/23 23:57 Ur Barbiturates Screen Not Detected (NotDetected) 09/15/23 23:57 U Tricyclic Antidepress Not Detected (NotDetected) 09/15/23 23:57 Ur Phencyclidine Scrn Not Detected (NotDetected) 09/15/23 23:57 Ur Amphetamines Screen Not Detected (NotDetected) 09/15/23 23:57 U Methamphetamines Scrn Not Detected (NotDetected) 09/15/23 23:57 U Benzodiazepines Scrn Not Detected (NotDetected) 09/15/23 23:57 Urine Cocaine Screen Not Detected (NotDetected) 09/15/23 23:57 U Marijuana (THC) Screen Not Detected (NotDetected) 09/15/23 23:57 Influenza Type A (PCR) Not Detected (Not Detectd) 09/16/23 21:40 Influenza Type B (PCR) Not Detected (Not Detectd) 09/16/23 21:40 RSV (PCR) Not Detected (Not Detectd) 09/16/23 21:40 SARS-CoV-2 (PCR) Not Detected (Not Detectd) 09/16/23 21:40 Vital Signs Temp 98 F 09/19/23 06:49 Pulse 90 09/19/23 09:43 Resp 16 09/19/23 06:49 BP 156/87 09/19/23 09:43 Pulse Ox 98 09/18/23 06:00 FiO2 Patient Condition at Discharge: Stable Plan - Discharge Summary Discharge Rx Participant: No New Discharge Prescriptions: New Citalopram Hydrobromide [CeleXA] 20 mg PO HS 30 Days #30 tab Melatonin 10 mg PO HS 30 Days #60 tab Albuterol Inhaler [Ventolin Hfa Inhaler] 2 puff INHALATION RT-QID PRN 30 Days #1 each PRN Reason: Shortness Of Breath Or Wheezing Carbamide Peroxide [Debrox Otic] 5 drops BOTH EARS BID PRN 10 Days #1 ml PRN Reason: Ear Wax Nicotine 14Mg/24Hr Patch [Habitrol] 1 patch TRANSDERM DAILY 14 Days #14 patch Continue Metoprolol Tartrate [Lopressor] 50 mg PO BID 30 Days tab Furosemide [Lasix] 20 mg PO DAILY Changed ARIPiprazole [Abilify Maintena] 300 mg PO Q28D #1 each Discharge Medication List Metoprolol Tartrate [Lopressor] 50 mg PO BID 30 Days tab 11/02/20 [Rx] Furosemide [Lasix] 20 mg PO DAILY 09/16/23 [History] ARIPiprazole [Abilify Maintena] 300 mg PO Q28D #1 each 09/19/23 [Rx] Albuterol Inhaler [Ventolin Hfa Inhaler] 2 puff INHALATION RT-QID PRN 30 Days #1 each 09/19/23 [Rx] Carbamide Peroxide [Debrox Otic] 5 drops BOTH EARS BID PRN 10 Days #1 ml 09/19/23 [Rx] Citalopram Hydrobromide [CeleXA] 20 mg PO HS 30 Days #30 tab 09/19/23 [Rx] Melatonin 10 mg PO HS 30 Days #60 tab 09/19/23 [Rx] Nicotine 14Mg/24Hr Patch [Habitrol] 1 patch TRANSDERM DAILY 14 Days #14 patch 09/19/23 [Rx] Follow up Appointment(s)/Referral(s): [facility] [Outside] - 09/22/23 2:00 pm (09/22@ 2pm with Dwight Sims 10/01@ 1pm with Dr. Snow) Della Potts [Primary Care Provider] - 1-2 days Activity/Diet/Wound Care/Special Instructions: Avoid the use of street drugs and alcohol. Take all medications as prescribed. When you are in need of refills on your medications, please contact your medical provider and/or outpatient psychiatrist/provider to have this done. Please go to your scheduled outpatient appointment for aftercare treatment. If symptoms return or become worse, call the crisis line at and/or go to the nearest emergency room for evaluation. National Suicide Hotline 988. Discharge Disposition: HOME SELF-CARE
== END 2023-09-19 13:04 | disposition home or self-care (01) | DRG 753 ==
LOC: EC 21:41 → 3MHU 09-16 18:38
PROVIDERS: ADMIT Psychiatry & Neurology Psychiatry; ATTEND Psychiatry & Neurology Psychiatry
DX: F31.9 Bipolar disorder, unspecified (principal); F23 Brief psychotic disorder; I10 Essential (primary) hypertension; F90.9 Attention-deficit hyperactivity disorder, unspecified type; F41.9 Anxiety disorder, unspecified; F17.200 Nicotine dependence, unspecified, uncomplicated; F19.11 Other psychoactive substance abuse, in remission; F14.11 Cocaine abuse, in remission; Z28.310 Unvaccinated for COVID-19; Z11.52 Encounter for screening for COVID-19; Z71.89 Other specified counseling; Z79.899 Other long term (current) drug therapy; Z91.199 Patient's noncompliance with other medical treatment and regimen due to unspecified reason
CPT/HCPCS: 71045; 80053; 80061; 80306; 82075; 82248; 83036; 83721; 84443; 85025; 87635; 87636; 96372; 99285